=== PATIENT | male | born 1960 | race African-American/Black ===

== ENCOUNTER 2016-11-21 11:47 | Emergency (ER) | payer OTHER ==
[2016-11-21 13:11] LABS: Bilirubin Negative (Negative); Blood, Urine Large (Negative); Glucose, Urine (Dipstick) Negative (Negative); Ketone, Urine Negative (Negative); Nitrite Negative (Negative); Protein, Urine (Dipstick) 100 mg/dL (Neg-Trace)
[2016-11-21 13:13] LABS: Bacteria/HPF 4+ HPF (None Seen); Squamous Epithelial 0-3 HPF (0-3)
[2016-11-21 13:23] LABS: RBC/HPF 21-50 HPF (0-3)
[2016-11-21 13:24] LABS: Hyaline Casts/LPF 0-3 HYALINE CAST LPF (0-3 Hyaline); Yeast-All Forms None Seen HPF (None Seen)
== END 2016-11-21 12:59 | disposition home or self-care (01) ==
LOC: ERS 11:47
DX: T83.038A Leakage of other urinary catheter, initial encounter (principal); B20 Human immunodeficiency virus [HIV] disease; G82.20 Paraplegia, unspecified; G62.9 Polyneuropathy, unspecified; F32.9 Major depressive disorder, single episode, unspecified; Z87.891 Personal history of nicotine dependence; Z79.899 Other long term (current) drug therapy
CPT/HCPCS: 51102; 81003; 81015

== ENCOUNTER 2017-01-07 10:23 | Outpatient (CLI) | payer OTHER, SELFPAY ==
[2017-01-07] MEDS ORDERED: Sodium Chloride 0.9% 15 ML NEB ONE (17:46)
--- NOTE | 2017-01-08 11:10 | HP ---
DATE OF SERVICE: 01/07/2017 HISTORY OF PRESENT ILLNESS: Mr. Jorje Marlow is a very pleasant 57-year-old gentleman, who prese nts to the Wound Center for evaluation of multiple decubitus ulcerations. The patient has pressure u lcerations of the left hip, left ischium, and left iliac crest. In addition, the patient has pressur e ulcerations of the left lateral foot, left medial foot, and left ankle. The patient resides at [facility]. The patient's primary care physician is Dr. Sanchez. The patient's medical history is si gnificant for HIV seropositivity, for which the patient has been seen by Dr. Kevin Mckeon. The ana ent's medical history is also significant for myelopathy with chronic paraparesis. PAST MEDICAL HISTORY: 1. History of upper gastrointestinal bleeding. 2. Hepatitis C. 3. Human immunodeficiency virus seropositivity. 4. Neurogenic bladder. 5. Myelopathy with chronic paraparesis. 6. Anemia. 7. Qwdjjhpv-ma-bvmtbe protein-calorie malnutrition. 8. Bilateral knee contractures. PAST SURGICAL HISTORY: 1. Eye surgery. 2. Sinus surgery. 3. Excision of tumor of the upper chest. 4. Debridement of bilateral ischial decubitus ulcers, 05/14/2016. 5. Suprapubic tube placement, 06/01/2016. MEDICATIONS: 1. Iron. 2. MiraLax. 3. Truvada. 4. Flomax. 5. Isentress. 6. Ritonavir. 7. Potassium. 8. Melatonin. 9. Remeron. 10. Baclofen. 11. Folic acid. 12. Tramadol. ALLERGIES: CODEINE and PENICILLIN. SOCIAL HISTORY: The patient admits to tobacco use of 3 cigarettes per day. He denies any EtOH use. FAMILY HISTORY: Noncontributory. PHYSICAL EXAMINATION: VITAL SIGNS: Temperature 96.0, pulse 81, respirations 18, blood pressure 114/68. GENERAL: A 57-year-old gentleman, cachectic, lying on stretcher in examination room, in no acute dis tress. HEENT: Normocephalic, atraumatic. NECK: No nuchal rigidity. CHEST: Clear to auscultation. CARDIOVASCULAR: Regular rate and rhythm. ABDOMEN: Soft. EXTREMITIES: Pressure ulcerations are present over the left hip, left ischium, left iliac crest, lef t lateral foot, left medial foot, and left ankle. The left ischial pressure ulceration is associated with copious purulent drainage emanating from a potential space under the wound bed. Significant tu nneling is associated with the wound with bone palpable within the wound margins. Significant necrot ic tissue is associated with the decubitus ulceration of the left lateral foot. ASSESSMENT AND PLAN: 1. Multiple decubitus ulcerations as described above. I have discussed the treatment plan with Dr. Sanchez. The patient will be taken to the Emergency Department for admission today. I have also dis cussed the treatment plan with Dr. Valdes in the Emergency Department. Mr. Marlow also understan ds and is in agreement with the preceding treatment plan. 2. History of upper gastrointestinal bleeding. 3. Hepatitis C. 4. Human immunodeficiency virus seropositivity. 5. Neurogenic bladder. 6. Myelopathy with chronic paraparesis. 7. Anemia. 8. Tlfbnqlz-wc-viwgzp protein calorie malnutrition. 9. Bilateral knee contractures.
== END 2017-01-07 10:24 | disposition home or self-care (01) ==
LOC: WCC 10:23
PROVIDERS: ATTEND Family Medicine
DX: S91.302D Unspecified open wound, left foot, subsequent encounter (principal); S71.002D Unspecified open wound, left hip, subsequent encounter; S31.104D Unspecified open wound of abdominal wall, left lower quadrant without penetration into peritoneal cavity, subsequent encounter
CPT/HCPCS: 87070; 87205; 97602; 99204; A4218; G0463

== ENCOUNTER 2017-01-07 12:07 | Inpatient (IN) | payer OTHER, SELFPAY ==
[2017-01-07 12:57] LABS: #Eosinphils 0.1 thou/uL (0.0-0.7); #Lymphocytes 1.2 thou/uL (1.20-3.40); #Monocytes 0.6 thou/uL (0.11-0.59); #Neutrophils 7.3 thou/uL (1.40-6.50); %Basophils 0.1 % (0.0-1.0); %Eosinophils 0.7 % (0.0-10.0); %Lymphocytes 12.6 % (21.0-51.0); %Neutrophils 79.7 % (42.0-75.0); Mean Corpuscular HGB CONC 27.7 g/dL (32.0-36.0); Mean Corpuscular Hemoglobin 20.3 pg (27.0-31.0); Mean Corpuscular Volume 73.4 fl (80.0-94.0); Mean Platelet Volume 6.6 fL (7.4-10.4); Platelet Count 646 thou/uL (130-400); RBC Distribution Width 16.6 % (11.5-14.5); Red Blood Cell (RBC) Count 3.45 mill/uL (4.70-6.10); White Blood Cell (WBC) Count 9.2 thou/uL (4.8-10.8)
[2017-01-07 13:11] LABS: MDiff Complete? YES
[2017-01-07 13:12] LABS: Hypochromia MODERATE=16-30 cells (100X) (0-5/hpf); Microcytosis MODERATE=15-30 cells (100X) (0-5/hpf); PLT Morphology Comment Appears Increased; Polychromasia SLIGHT = 2-3 cells (100X) (0-2/hpf); Reflex for Review?? NO; Target Cells SLIGHT = 2-5 cells (100X) (0-1/hpf)
[2017-01-07 13:25] LABS: ALT (SGPT) 10 U/L (8-55); AST (SGOT) 23 U/L (5-34); Albumin 2.2 g/dL (3.5-5.0); Alkaline Phosphatase 101 U/L (40-150); Anion Gap 10 mmol/L (10-20); BUN (Urea Nitrogen) 12 mg/dL (8.4-25.7); Bilirubin, Total 0.3 mg/dL (0.2-1.2); Calc. Creatinine Clearance 0 mL/min (70-130); Calcium 8.3 mg/dL (7.8-10.44); Carbon Dioxide 27 mmol/L (22-29); Chloride 104 mmol/L (98-107); Estimated GFR-MDRD Greater than 90; Globulin 4.8 g/dL (2.4-3.5); Glucose 102 mg/dL (70-105); Potassium 3.8 mmol/L (3.5-5.1); Sodium 137 mmol/L (136-145)
[2017-01-07 13:28] LABS: CKMB 1.7 ng/mL (0-6.6); Troponin I Less than 0.010 ng/mL (< 0.028)
[2017-01-07] MEDS ORDERED: Sodium Chloride 0.9% 1,000 ML IV SCH (15:02)
[2017-01-07] MEDS ORDERED: Ondansetron ODT 4 MG TAB PO PRN (15:53)
[2017-01-07] MEDS ORDERED: cloNIDine 0.1 MG TAB PO PRN (15:53)
[2017-01-07] MEDS ORDERED: Ondansetron HCl/PF 4 MG/2 ML Vial IVP PRN (15:53)
[2017-01-07] MEDS ORDERED: Acetaminophen 500 MG TAB PO PRN (15:53)
[2017-01-07] MEDS ORDERED: hydrALAZINE 20 MG/ML VIAL SLOW IVP PRN (15:53)
--- NOTE | 2017-01-07 17:12 | HP ---
DATE OF ADMISSION: 01/07/2017 PRIMARY CARE PROVIDER: Chey Sanchez M.D. CHIEF COMPLAINT: Foot infection. HISTORY OF PRESENT ILLNESS: This is a 57-year-old -Romanian male with longstanding history of decubitus ulceration of the left ischium and left ankle region receiving local wound care at [facility]. The patient has been admitted and evaluated for decubitus ulceration s in these areas previously noted after review of the medical record dating back in early 2016. The patient states the left ankle wound has increased in size and complexity with malodorous discharge. The patient was being referred to the Wound Care [facility] at [facility] by Wayne Petersen after the staff at the facility noted worsening of these areas with jair pus draining from t he wounds. Patient admits to feeling generally rundown with chills and some recent nausea and diarrh ea. The patient denies any recent antibiotics exposure other than previously treated for suspected u rinary tract infection with chronic indwelling Thornton catheter. The patient was noted with wound cult ures as early as 12/10/2016 showing Pseudomonas aeruginosa, E. coli and Providencia stuartii. The pa malia was treated for this infection at that time, but states no current antibiotic therapy. The pat ient denies any specific increased shortness of breath, recent trauma, fall or new exposure history. Patient states there is some pain in the left foot, relieved with oral pain medication and otherwise movement of the extremity makes it worse. In the emergency room, patient underwent general evaluati on showing gangrenous changes of the left foot as well as draining decubitus ulcerations of the left ischium and iliac crest region, chronic in nature. The patient received IV vancomycin and was referr ed to the surgical floor for evaluation. PAST MEDICAL HISTORY: 1. Chronic indwelling Thornton catheter due to neurogenic bladder. 2. Severe peripheral neuropathy with nonambulatory status. 3. Moderate to severe protein calorie malnutrition. 4. Chronic decubitus ulcerations of the left ischium, sacrum and iliac crest, status post wound VAC. 5. Chronic normocytic anemia. 6. Human immunodeficiency viral infection with current treatment. 7. Hepatitis C with current treatment. 8. Chronic urinary tract infection secondary to chronic indwelling Thornton catheter. PAST SURGICAL HISTORY: 1. Status post sinus biopsy. 2. Status post local debridement with wound VAC application to chronic decubitus ulcers. 3. Status post tumor removal of his upper chest. CURRENT MEDICATIONS: Based on previous admission and early 2017; 1. Baclofen 10 mg p.o. t.i.d. 2. Truvada 200/300 mg 1 tablet p.o. daily. 3. Ferrous sulfate 325 mg p.o. b.i.d. 4. Folic acid 1 mg p.o. daily. 5. Isentress 400 mg p.o. b.i.d. 6. Flomax 0.4 mg p.o. daily. ALLERGIES: PENICILLIN and CODEINE. FAMILY HISTORY: Positive for diabetes and hypertension in his mother. SOCIAL HISTORY: Patient resides at [facility]. No current alcohol, tobac co or illicit drug use. Formerly used marijuana and tobacco products. REVIEW OF SYSTEMS: The following complete review of systems was negative, unless otherwise mentioned in the HPI or below: Constitutional: Weight loss or gain, ability to conduct usual activities. Skin: Rash, itching. Eyes: Double vision, pain. ENT/Mouth: Nose bleeding, neck stiffness, pain, tenderness. Cardiovascular: Palpitations, dyspnea on exertion, orthopnea. Respiratory: Shortness of breath, wheezing, cough, hemoptysis, fever or night sweats. Gastrointestinal: Poor appetite, abdominal pain, heartburn, nausea, vomiting, constipation, or diarr hea. Genitourinary: Urgency, frequency, dysuria, nocturia. Musculoskeletal: Pain, swelling. Neurologic/Psychiatric: Anxiety, depression. Allergy/Immunologic: Skin rash, bleeding tendency. Otherwise negative except as stated per HPI. PHYSICAL EXAMINATION: VITAL SIGNS: On admission, blood pressure 108/61, pulse 97, respiratory rate 18, temperature 98.4 de grees Fahrenheit, O2 saturation 98% on room air. GENERAL APPEARANCE: This is a 57-year-old -Romanian male, alert and oriented x3, pleasant, in no acute distress. HEENT: Pupils are equal, round, and reactive to light and accommodation. Extraocular muscles are in tact. No scleral icterus, no conjunctival injection. Nares patent. OP is clear. NECK: Supple, no cervical adenopathy, no thyromegaly, no carotid bruits, no JVD appreciated. Cervic al spine with full active and passive range of motion. CHEST: Lungs are clear to auscultation bilaterally. CARDIOVASCULAR: S1 and S2 without noted murmur. ABDOMEN: Rounded, soft, nontender, nondistended. Bowel sounds are positive in all four quadrants. There is no hepatosplenomegaly, no abdominal bruits, no rebound or guarding appreciated. EXTREMITIES: Contractures of bilateral hip flexors knees and ankle region. Severe generalized muscl e atrophy. Decubitus ulcerations of the left sacral, left ischium and left iliac crest region. Larg e area of gangrenous necrosis of the left ankle with exposed subcutaneous tissue, muscle fascia and t endons structures. NEUROLOGIC: Cranial nerves II-XII are grossly intact. The patient not observed ambulatory. No othe r gross focal deficits other than inability to extend lower extremities bilaterally. PERTINENT LABORATORY DATA AND X-RAY FINDINGS: Basic metabolic profile within normal limits. Lactic acid level 0.9. LFTs within normal limits. Albumin 2.2. CBC showed white blood cell count 9.2, hem oglobin 7, hematocrit 25.3, MCV 73.4, and platelet count is 646 with 80% neutrophilia. ASSESSMENT AND PLAN: 1. Gangrene of the left ankle. The patient will be admitted to the surgical appiah. We will consult General Surgery Service for evaluation and likely [id number] amputation. The patient with extens evangelina tissue destruction and gangrene with severe necrosis necessitating surgical intervention. We nikolai l continue vancomycin 1 g IV q.12 hours. Pain control with morphine sulfate 4 mg IV every 4 hours p. r.n. We will continue local wound care pending surgical evaluation. 2. Chronic decubitus ulcerations of the left ischium, sacrum and iliac crest. We will consult Wound Care services for evaluation and daily care. We will obtain surgical evaluation as outlined in #1. 3. Chronic microcytic anemia. Stable currently. We will continue to monitor hemoglobin trend. No current evidence of acute blood loss. Repeat CBC in a.m. 4. Human immunodeficiency virus with antiretroviral therapy. We will continue outpatient antiretrov iral therapy and monitor clinical response. 5. Hepatitis C with current therapy. We will continue supportive measures. LFTs within normal limi ts currently. 6. Severe peripheral neuropathy with nonambulatory status. Continue turning protocol. Local wound care as outlined previously. Continue Baclofen 10 mg p.o. t.i.d. 7. Moderate to severe protein calorie malnutrition. Ensure t.i.d. with meals. Consider dietitian neli onsult. 8. Prophylaxis. Sequential compression devices while in bed. Pepcid 20 mg p.o. b.i.d. 9. Code status is FULL. Surrogate medical decision maker is the patient's mother.
[2017-01-07] MEDS: Baclofen 10 MG TAB PO SCH (17:38)
[2017-01-07] MEDS: Ferrous Sulfate 325 MG TAB PO SCH (17:38)
[2017-01-07] MEDS: Sodium Chloride 0.9% 1,000 ML IV SCH (17:38)
[2017-01-07 17:48] VITALS: BMI 16.3
[2017-01-07] MEDS: Famotidine 20 MG TAB PO SCH (20:50)
[2017-01-07] MEDS: Raltegravir Potassium 400 MG TAB PO SCH (20:50)
[2017-01-08] MEDS: Vancomycin HCl 1 GM in Premix Bag 1 BAG IVPB SCH ×2 (01:58→13:44)
[2017-01-08] MEDS: Sodium Chloride 0.9% 1,000 ML IV SCH ×3 (02:01→21:54)
[2017-01-08 06:02] LABS: Band 2 % (5-11); Elliptocytes SLIGHT = 2-5 cells (100X) (0-1/hpf); Eosinophils 3 % (0-10); Hemoglobin 6.5 g/dL (14.0-18.0); Hypochromia SLIGHT = 6-15 cells (100X) (0-5/hpf); Lymphocytes 18 % (21-51); MDiff Complete? YES; Mean Corpuscular HGB CONC 28.1 g/dL (32.0-36.0); Mean Corpuscular Hemoglobin 20.5 pg (27.0-31.0); Mean Corpuscular Volume 73.1 fl (80.0-94.0); Mean Platelet Volume 6.7 fL (7.4-10.4); Microcytosis SLIGHT = 6-15 cells (100X) (0-5/hpf); Monocytes 13 % (0-10); Neutrophil 64 % (42-75); PLT Morphology Comment Appears Increased; Platelet Count 570 thou/uL (130-400); RBC Distribution Width 16.4 % (11.5-14.5); Red Blood Cell (RBC) Count 3.15 mill/uL (4.70-6.10); White Blood Cell (WBC) Count 6.2 thou/uL (4.8-10.8)
[2017-01-08 06:08] LABS: ALT (SGPT) Less than 7 U/L (8-55); AST (SGOT) 18 U/L (5-34); Alkaline Phosphatase 91 U/L (40-150); Anion Gap 7 mmol/L (10-20); BUN (Urea Nitrogen) 8 mg/dL (8.4-25.7); Bilirubin, Total 0.3 mg/dL (0.2-1.2); Calc. Creatinine Clearance 121 mL/min (70-130); Carbon Dioxide 26 mmol/L (22-29); Chloride 104 mmol/L (98-107); Estimated GFR-MDRD Greater than 90; Globulin 4.1 g/dL (2.4-3.5); Glucose 75 mg/dL (70-105); Potassium 3.7 mmol/L (3.5-5.1); Protein, Total 6.1 g/dL (6.0-8.3); Sodium 133 mmol/L (136-145)
[2017-01-08] MEDS: Raltegravir Potassium 400 MG TAB PO SCH ×2 (09:46→20:44)
[2017-01-08] MEDS: Emtricitabine/Tenofovir 200-300 MG TAB PO SCH (09:46)
[2017-01-08] MEDS: Baclofen 10 MG TAB PO SCH ×3 (09:46→18:07)
[2017-01-08] MEDS: Tamsulosin HCl 0.4 MG CAP PO SCH (11:41)
[2017-01-08] MEDS: Famotidine 20 MG TAB PO SCH ×2 (11:41→20:44)
[2017-01-08] MEDS: Polyethylene Glycol 3350 17 GM Packet PO SCH (11:41)
[2017-01-08] MEDS: Ferrous Sulfate 325 MG TAB PO SCH ×2 (11:41→18:07)
[2017-01-08] MEDS: Folic Acid 1 MG TAB PO SCH (11:41)
--- NOTE | 2017-01-08 13:00 | CON ---
DATE OF CONSULTATION: 01/08/2017 REASON FOR CONSULTATION: Gangrenous wound of left foot. HISTORY OF PRESENT ILLNESS: Mr. Marlow is a 57-year-old -[place] male with rapidly progressive neuropathy and contractures of the lower extremity. He has a history of HIV and became depressed and quit taking his HIV medication and ended up in a custodial, nonambulatory with contractures of the lower extremity and generalized weakness. I saw him back in May and June of this year and debrided multiple ischial decubitus as well as decubitus ulcers of his left foot. At that time, the wounds were into the subcutaneous tissues, but not down to bone. He was sent to a custodial facility for ongoing wound care. He still spends most of his day up in a wheelchair kind of propped to the side since his hips are contracted greater than 90 degrees. He states that his right foot has healed up fine, but his left foot has gotten much worse and his doctors have told him that his only option is amputation. He denies any fevers or chills, but has had increased swelling and odor from the left foot. He is completely nonambulatory and no longer transfers. PAST MEDICAL HISTORY: HIV, now back on his medications for about 9 months; severe peripheral neuropathy of unknown etiology; nonambulatory with multiple contractures; severe protein-calorie malnutrition with recent worsening due to an episode of nausea and diarrhea, which has since resolved; chronic decubitus ulcers of the ischium and sacrum; chronic decubitus ulcers of the left foot and right heel; hepatitis C, currently undergoing treatment; chronic UTI with a suprapubic catheter placed due to erosion of the penis from a Thornton catheter. PAST SURGICAL HISTORY: Sinus surgery, debridement of multiple decubitus ulcers with wound VAC applications, suprapubic catheter placement, and tumor removal from his upper chest. OUTPATIENT MEDICATIONS: Include melatonin/paroxetine, Santyl, baclofen, Truvada , iron, folate, MiraLax, Isentress and Flomax. INPATIENT MEDICATIONS: Baclofen, Truvada, Pepcid, iron, folate, MiraLax, Isentress, Flomax, vancomycin, and multiple p.r.n.s. ALLERGIES: He reports allergies to PENICILLIN and CODEINE. FAMILY HISTORY: Diabetes and high blood pressure. SOCIAL HISTORY: He is a former smoker, but no longer smokes. He used to use marijuana, but no longer uses that either. He does not drink. He is at a custodial facility and requires total assist for transfers. REVIEW OF SYSTEMS: Ten-system review of systems is negative except per HPI. PHYSICAL EXAMINATION: VITAL SIGNS: The patient has been afebrile since his admission, heart rate 79, respirations 14, 97% saturated on room air, blood pressure 99/58. GENERAL: Reveals a cachectic, chronically ill-appearing man, in no acute distress. He is not flushed or toxic in appearance. He is not jaundiced or icteric. HEENT: Unremarkable. NECK: Supple, without lymphadenopathy or thyroid nodules. HEART: Regular rate and rhythm without murmurs, rubs, or gallops. LUNGS: Clear to auscultation bilaterally. ABDOMEN: Soft and nontender. He has a suprapubic catheter in place. EXTREMITIES: He has severe contractures of bilateral lower extremities. His hips do not extend even to 90 degrees nor do his knees. His right heel decubitus ulcer has completely healed and he has no active decubitus ulcers on the right foot. The left foot has full thickness, but clean and granulating ulcerations on the medial surface, but the lateral surface has frankly gangrenous tissues with exposed tendon and bone and a foul odor. His entire left foot is warm and boggy, and there is swelling up to the level of the ankle as well as some erythema, but no lymphangitic streaking. He has a left ischial decubitus ulcer as well as sacral decubitus ulcers. There is some necrotic tissue in the sacral ulcer, but the other ulcers appear fairly clean and granulating. LABORATORY DATA: White count is normal at 6.2, hematocrit is low at 23, platelets 570. Electrolytes are unremarkable. LFTs are unremarkable except for a low albumin at 2, troponins were negative on admission. His absolute CD4 count on 01/02/2017 was 123, which is low, but his HIV RNA counts have come down between March and June of this year. I do not see any more recent than that. There is no imaging during this admission. ASSESSMENT AND PLAN: Gangrenous left foot due to progressive decubitus ulcer. I agree with his primary care doctor that amputation is indicated. He is nonambulatory with contractions, and whether we do a yoght-hgav-zhdagybols or dgnib-uox-jmlr amputation, the incision is at some risk of breakdown, since the patient spends most of the time lying on that side. Due to his active infection , I have recommended a guillotine amputation at the ankle to allow him to clear his infection prior to proceeding with a BKA or AKA, which the patient has yet to decide. I also plan to debride some of the necrotic tissue from the sacral decubitus ulcer while he is under anesthesia. He was eating breakfast when I saw him this morning, but has been n.p.o. since 8:30. So, we will plan his operation for 4:30 this afternoon. The procedure and its inherent risks were discussed with the patient. He understands and accepts these risks and wishes to proceed. All of his questions were answered. MRAK
[2017-01-08] MEDS ORDERED: PHENYLEPHRINE-NS 100 MCG/ML 10 ML SYRINGE ONE (14:36)
[2017-01-08] MEDS ORDERED: Ondansetron HCl/PF 4 MG/2 ML Vial ONE (14:36)
[2017-01-08] MEDS ORDERED: ePHEDrine/0.9% NaCl/PF SYRINGE 50 mg/10 ml ONE (14:36)
[2017-01-08] MEDS ORDERED: Glycopyrrolate 0.2 MG/ML 5 ML SYRINGE ONE (14:36)
[2017-01-08] MEDS ORDERED: Lidocaine 1% PF 5 ML VIAL ONE (14:36)
[2017-01-08] MEDS ORDERED: PROPOFOL 200 MG/20 ML VIAL ONE (14:36)
[2017-01-08] MEDS ORDERED: Fentanyl 250 MCG/5 ML VIAL ONE (16:25)
--- NOTE | 2017-01-08 17:39 | PDOC.PN ---
- Subjective Encounter Start Date: 01/08/17 Encounter Start Time: 13:00 Subjective: f/u for gangrene of L foot/ankle with chronic decubitus ulcerations of -: L ischium, sacrum and iliac crest. Plan for amputation of L foot above the -: ankle today. Receiving Vancomycin. - Objective Resuscitation Status: Resuscitation Status FULL:Full Resuscitation MAR Reviewed: Yes Vital Signs & Weight: Vital Signs (12 hours) Temp Pulse Resp BP Pulse Ox 01/08/17 11:25 97.9 F 79 14 99/58 L 97 01/08/17 08:58 98.3 F 78 20 97 01/08/17 07:20 98.3 F 78 20 116/69 97 Weight Admit Weight 117 lb Weight 117 lb I&O: 01/07/17 01/08/17 01/09/17 06:59 06:59 06:59 Intake Total 1950 Output Total 1700 Balance 250 Result Diagrams: 01/08/17 04:44 01/08/17 04:44 Additional Labs: Microbiology 01/07/17 12:49 Venous blood - Right Hand Blood Culture - Preliminary Specimen has been received and culture in progress. No Growth to date. 01/07/17 12:49 Venous blood - Left Hand Blood Culture - Preliminary Specimen has been received and culture in progress. No Growth to date. Laboratory Tests 01/07/17 12:32 Hgb 7.0 L Plt Count 646 H Phys Exam - Physical Examination Constitutional: NAD HEENT: PERRLA, oral pharynx no lesions Neck: no JVD Respiratory: no wheezing, clear to auscultation bilateral Cardiovascular: RRR Gastrointestinal: soft, non-tender, no distention, positive bowel sounds bilateral chronic LE contractures, L foot edema Musculoskeletal: pulses present Moves UE's without difficulty Neurological: normal sensation Psychiatric: A&O x 3 Deviation from normal: L foot with extensive gangrene and necrosis Skin: normal turgor, cap refill <2 seconds Dx/Plan (1) Gangrene of left foot Code(s): I96 - GANGRENE, NOT ELSEWHERE CLASSIFIED Status: Acute Comment: Plan for BKA today, continue pain control and IV Vancomycin (2) Neurogenic bladder Code(s): N31.9 - NEUROMUSCULAR DYSFUNCTION OF BLADDER, UNSPECIFIED Status: Chronic Comment: Chronic indwelling Thornton catheter (3) Anemia, chronic disease Code(s): D63.8 - ANEMIA IN OTHER CHRONIC DISEASES CLASSIFIED ELSEWHERE Status : Chronic Comment: Serial monitoring, may need PRBC's during surgery (4) Bilateral knee contractures Code(s): M24.561 - CONTRACTURE, RIGHT KNEE; M24.562 - CONTRACTURE, LEFT KNEE Status: Chronic Comment: Severe contractures of LE's, PT/OT for evaluation (5) Decubitus ulcers Code(s): L89.90 - PRESSURE ULCER OF UNSPECIFIED SITE, UNSPECIFIED STAGE Status : Chronic Qualifiers: Pressure ulcer stage: unstageable Comment: Plan for repeat debridement today, local wound care, IV Vancomycin (6) HIV (human immunodeficiency virus infection) Status: Chronic Comment: Continue anti-retroviral therapy (7) Protein-calorie malnutrition, moderate Code(s): E44.0 - MODERATE PROTEIN-CALORIE MALNUTRITION Status: Chronic Comment: Ensure Enlive TID - Plan continue antibiotics, PT/OT, clinical social work aide Continue supportive measures -: Plan for amputation of L foot today -: WCT with local care -: Pain control with Morphine Sulfate -: Continue IVF NS 100ml/h * AM lab: BMP, CBC * Appreciate Surgery assistance
[2017-01-08] MEDS ORDERED: Promethazine HCl 25 MG/ML VIAL SLOW IVP PRN (18:21)
[2017-01-08] MEDS ORDERED: Ondansetron HCl/PF 4 MG/2 ML Vial IVP PRN (18:21)
[2017-01-08] MEDS ORDERED: Promethazine HCl 25 MG/ML VIAL IM PRN (18:21)
[2017-01-08] MEDS ORDERED: Promethazine HCl 25 MG/ML VIAL ONE (18:41)
[2017-01-08] MEDS ORDERED: Bupivacaine/Epinephrine 0.25% 30 ML VIAL ONE (18:42)
[2017-01-09 01:22] LABS: Vancomycin, Trough 9.8 ug/mL
[2017-01-09] MEDS ORDERED: Vancomycin HCl 1 GM in Premix Bag 1 BAG IVPB SCH (03:00)
[2017-01-09] MEDS: Vancomycin HCl 1 GM in Premix Bag 1 BAG IVPB SCH ×3 (03:04→17:57)
[2017-01-09 07:17] LABS: ALT (SGPT) 8 U/L (8-55); AST (SGOT) 22 U/L (5-34); Alkaline Phosphatase 89 U/L (40-150); Anion Gap 8 mmol/L (10-20); BUN (Urea Nitrogen) 6 mg/dL (8.4-25.7); Bilirubin, Total 0.2 mg/dL (0.2-1.2); Calc. Creatinine Clearance 115 mL/min (70-130); Calcium 8.1 mg/dL (7.8-10.44); Carbon Dioxide 27 mmol/L (22-29); Chloride 105 mmol/L (98-107); Estimated GFR-MDRD Greater than 90; Globulin 4.3 g/dL (2.4-3.5); Glucose 95 mg/dL (70-105); Potassium 3.7 mmol/L (3.5-5.1); Protein, Total 6.3 g/dL (6.0-8.3); Sodium 136 mmol/L (136-145)
[2017-01-09 07:50] LABS: #Eosinphils 0.1 thou/uL (0.0-0.7); #Lymphocytes 1.1 thou/uL (1.20-3.40); #Monocytes 0.4 thou/uL (0.11-0.59); #Neutrophils 2.9 thou/uL (1.40-6.50); %Basophils 0.2 % (0.0-1.0); %Eosinophils 3.1 % (0.0-10.0); %Lymphocytes 23.5 % (21.0-51.0); %Monocytes 9.6 % (0.0-10.0); %Neutrophils 63.6 % (42.0-75.0); Anisocytosis SLIGHT = 6-15 cells (100X) (0-5/hpf); Hemoglobin 6.7 g/dL (14.0-18.0); Hypochromia MODERATE=16-30 cells (100X) (0-5/hpf); MDiff Complete? YES; Mean Corpuscular HGB CONC 27.7 g/dL (32.0-36.0); Mean Corpuscular Hemoglobin 20.4 pg (27.0-31.0); Mean Corpuscular Volume 73.6 fl (80.0-94.0); Mean Platelet Volume 6.3 fL (7.4-10.4); Ovalocytes SLIGHT = 2-5 cells (100X) (0-1/hpf); Platelet Count 575 thou/uL (130-400); Poikilocytosis SLIGHT = 6-15 cells (100X) (0-5/hpf); RBC Distribution Width 16.1 % (11.5-14.5); Red Blood Cell (RBC) Count 3.26 mill/uL (4.70-6.10); Target Cells SLIGHT = 2-5 cells (100X) (0-1/hpf); White Blood Cell (WBC) Count 4.6 thou/uL (4.8-10.8)
[2017-01-09] MEDS: Polyethylene Glycol 3350 17 GM Packet PO SCH (08:38)
[2017-01-09] MEDS: Emtricitabine/Tenofovir 200-300 MG TAB PO SCH (08:39)
[2017-01-09] MEDS: Sodium Chloride 0.9% 1,000 ML IV SCH ×2 (08:39→17:58)
[2017-01-09] MEDS: Ferrous Sulfate 325 MG TAB PO SCH ×2 (08:39→17:57)
[2017-01-09] MEDS: Baclofen 10 MG TAB PO SCH ×3 (08:39→17:57)
[2017-01-09] MEDS: Famotidine 20 MG TAB PO SCH ×2 (08:39→21:09)
[2017-01-09] MEDS: Tamsulosin HCl 0.4 MG CAP PO SCH (08:40)
[2017-01-09] MEDS: Raltegravir Potassium 400 MG TAB PO SCH ×2 (08:40→21:08)
[2017-01-09] MEDS: Folic Acid 1 MG TAB PO SCH (08:40)
[2017-01-09] MEDS ORDERED: Morphine 2 mg/2ml in 0.9% NaCl PF SYRINGE IV PRN (09:47)
[2017-01-09] MEDS ORDERED: traMADol HCl 50 MG TAB PO PRN (09:50)
[2017-01-09] MEDS ORDERED: HYDROcodone/Acetaminophen 5/325 mg Tablet PO PRN ×2 (09:50)
[2017-01-09] MEDS: Morphine 4 MG/ML VIAL SLOW IVP PRN (11:07)
--- NOTE | 2017-01-09 15:06 | PDOC.PN ---
- Subjective Encounter Start Date: 01/09/17 Encounter Start Time: 14:55 Subjective: f/u s/p amputation of L foot secondary to severe gangrene and necrosis. -: POD #1 and pain controlled. Sleeping more today. Appetite ok. No fever. - Objective Resuscitation Status: Resuscitation Status FULL:Full Resuscitation MAR Reviewed: Yes Vital Signs & Weight: Vital Signs (12 hours) Temp Pulse Resp BP Pulse Ox 01/09/17 11:15 98.1 F 79 24 H 122/63 99 01/09/17 08:36 98.3 F 70 24 H 130/70 100 01/09/17 08:00 98.3 F 70 24 H 100 01/09/17 04:00 98.1 F 68 16 128/79 98 Weight Admit Weight 117 lb Weight 117 lb I&O: 01/08/17 01/09/17 01/10/17 06:59 06:59 06:59 Intake Total 1950 1440 Output Total 1700 2350 Balance 250 -910 Result Diagrams: 01/09/17 06:46 01/09/17 06:46 Additional Labs: Microbiology 01/07/17 12:49 Venous blood - Right Hand Blood Culture - Preliminary Specimen has been received and culture in progress. No Growth to date. 01/07/17 12:49 Venous blood - Right Hand Blood Culture - Preliminary NO GROWTH AT 48 HOURS 01/07/17 12:49 Venous blood - Left Hand Blood Culture - Preliminary Specimen has been received and culture in progress. No Growth to date. 01/07/17 12:49 Venous blood - Left Hand Blood Culture - Preliminary NO GROWTH AT 48 HOURS Laboratory Tests 01/07/17 01/08/17 01/09/17 12:32 04:44 00:54 Hgb 7.0 L 6.5 L Plt Count 646 H 570 H Vancomycin Trough 9.8 Phys Exam - Physical Examination Constitutional: NAD HEENT: PERRLA, oral pharynx no lesions Neck: no JVD, supple Respiratory: no wheezing, clear to auscultation bilateral Cardiovascular: RRR Gastrointestinal: soft, non-tender, no distention, positive bowel sounds BLE contractures, LLE with post-surgical changes and surgical dressing in place, wound vac in place Musculoskeletal: pulses present, edema present Psychiatric: A&O x 3 Skin: normal turgor, cap refill <2 seconds Dx/Plan (1) Gangrene of left foot Code(s): I96 - GANGRENE, NOT ELSEWHERE CLASSIFIED Status: Acute Comment: s/ p L foot amputation POD #1, continue pain control and IV Vancomycin (2) Neurogenic bladder Code(s): N31.9 - NEUROMUSCULAR DYSFUNCTION OF BLADDER, UNSPECIFIED Status: Chronic Comment: Chronic indwelling Thornton catheter (3) Anemia, chronic disease Code(s): D63.8 - ANEMIA IN OTHER CHRONIC DISEASES CLASSIFIED ELSEWHERE Status : Chronic Comment: Serial monitoring, transfuse 1u PRBC's today, CBC in am (4) Bilateral knee contractures Code(s): M24.561 - CONTRACTURE, RIGHT KNEE; M24.562 - CONTRACTURE, LEFT KNEE Status: Chronic Comment: Severe contractures of LE's, PT/OT for evaluation (5) Decubitus ulcers Code(s): L89.90 - PRESSURE ULCER OF UNSPECIFIED SITE, UNSPECIFIED STAGE Status : Chronic Qualifiers: Pressure ulcer stage: unstageable Comment: s/p debridement 01/08/17, local wound care, IV Vancomycin (6) HIV (human immunodeficiency virus infection) Status: Chronic Comment: Continue anti-retroviral therapy (7) Protein-calorie malnutrition, moderate Code(s): E44.0 - MODERATE PROTEIN-CALORIE MALNUTRITION Status: Chronic Comment: Ensure Enlive TID - Plan continue antibiotics, PT/OT, social work job titles Stable overall -: Continue Vancomycin 1gm IV q12h -: Local WCT with wound vac -: Transfuse 1u PRBC's -: AM lab: BMP, CBC * .
--- NOTE | 2017-01-10 01:07 | PRG ---
Mr. Marlow is feeling fine. He denies pain at his operative sites. Wound care placed VAC dressings to his sacral decubitus ulcer and wet to dry dressings to his ankle guillotine wound which is clean. Erythema and swelling on his leg looks to be improved. LABORATORY DATA: White count is normal. Hematocrit is still low at 24, but stable. Electrolytes are unremarkable. Albumin is low at 2, consistent with his severe cachexia. ASSESSMENT: Severe gangrene of the left foot due to pressure necrosis, status post ankle guillotine to control the infection. The wound is clean and we will plan on formal amputation at a higher level tomorrow. I have briefly discussed the options of below knee versus above knee. The patient is nonambulatory and bedbound. He spends most of his time lying on his left side. So for this reason allowing a below knee amputation may be preferable since most of the incision will be anterior. He has normal circulation so should heel a below knee amputation or an above the knee amputation and he will prefer below the knee amputation, so we will proceed with that tomorrow. If he has wound healing problems that may require amputation at a higher level. MARK
[2017-01-10 01:36] LABS: Vancomycin, Trough 19.5 ug/mL
[2017-01-10] MEDS: Sodium Chloride 0.9% 1,000 ML IV SCH ×3 (02:21→22:19)
[2017-01-10] MEDS: Vancomycin HCl 1 GM in Premix Bag 1 BAG IVPB SCH ×4 (02:30→17:13)
[2017-01-10 05:37] LABS: Anion Gap 10 mmol/L (10-20); BUN (Urea Nitrogen) 8 mg/dL (8.4-25.7); Calc. Creatinine Clearance 117 mL/min (70-130); Carbon Dioxide 24 mmol/L (22-29); Chloride 104 mmol/L (98-107); Estimated GFR-MDRD Greater than 90; Glucose 107 mg/dL (70-105); Potassium 4.3 mmol/L (3.5-5.1); Sodium 134 mmol/L (136-145)
[2017-01-10 06:18] LABS: Eosinophils 2 % (0-10); Hypochromia SLIGHT = 6-15 cells (100X) (0-5/hpf); Lymphocytes 20 % (21-51); MDiff Complete? YES; Mean Corpuscular HGB CONC 28.9 g/dL (32.0-36.0); Mean Corpuscular Volume 76.3 fl (80.0-94.0); Mean Platelet Volume 6.7 fL (7.4-10.4); Monocytes 3 % (0-10); Neutrophil 75 % (42-75); PLT Morphology Comment Appears Adequate; Platelet Count 577 thou/uL (130-400); RBC Distribution Width 17.4 % (11.5-14.5); Red Blood Cell (RBC) Count 3.62 mill/uL (4.70-6.10); White Blood Cell (WBC) Count 8.2 thou/uL (4.8-10.8)
[2017-01-10] MEDS ORDERED: Levofloxacin 500 mg/D5W 100 ml Premix Bag ONE (07:23)
[2017-01-10] MEDS ORDERED: Fentanyl 100 MCG/2 ML VIAL ONE (07:39)
--- NOTE | 2017-01-10 09:08 | PDOC.PN ---
- Subjective Encounter Start Date: 01/10/17 Encounter Start Time: 06:30 -: old records requested/rev Pt seen and examined, chart reviewed in its entirety. No acute event sovernigh,t pain controlled, no F/c, no N/V/d/C. To OR now for presumed BKA. POD2 from [facility] amp for gangrene from infected pressure ulcer. BCx remain negative, afebrile, no acute event snoted 10 point rOS performed and neg for all systems except as per HPI above - Objective Resuscitation Status: Resuscitation Status FULL:Full Resuscitation MAR Reviewed: Yes Vital Signs & Weight: Vital Signs (12 hours) Temp Pulse Pulse Resp BP BP Pulse Ox 01/10/17 04:00 98.6 F 78 16 109/61 98 01/09/17 23:19 98.4 F 80 16 124/68 96 01/09/17 23:12 98.4 F 74 16 128/74 95 Weight Admit Weight 117 lb Weight 117 lb I&O: 01/09/17 01/10/17 01/11/17 06:59 06:59 06:59 Intake Total 1440 2630 Output Total 2350 1400 Balance -910 1230 Result Diagrams: 01/10/17 04:59 01/10/17 04:59 Radiology Reviewed by me: Yes EKG Reviewed by me: Yes Phys Exam - Physical Examination Constitutional: NAD HEENT: PERRLA, moist MMs, sclera anicteric, oral pharynx no lesions Neck: no nodes, no JVD, supple, full ROM Respiratory: no wheezing, no rales, no rhonchi, clear to auscultation bilateral Cardiovascular: RRR, no significant murmur, no rub Gastrointestinal: soft, non-tender, no distention, positive bowel sounds Musculoskeletal: edema present right leg pulses 1+ in DP and PT. Amp site to L leg c/d/I Neurological: non-focal, normal sensation, moves all 4 limbs Lymphatic: no nodes Psychiatric: normal affect, A&O x 3 Skin: no rash, normal turgor, cap refill <2 seconds Dx/Plan (1) HTN (hypertension) Code(s): I10 - ESSENTIAL (PRIMARY) HYPERTENSION Status: Chronic Qualifiers: Hypertension type: essential hypertension Qualified Code(s): I10 - Essential (primary) hypertension (2) HLD (hyperlipidemia) Code(s): E78.5 - HYPERLIPIDEMIA, UNSPECIFIED Status: Chronic Qualifiers: Hyperlipidemia type: unspecified Qualified Code(s): E78.5 - Hyperlipidemia , unspecified (3) Gangrene of left foot Code(s): I96 - GANGRENE, NOT ELSEWHERE CLASSIFIED Status: Acute Comment: s/ p L foot amputation POD #2, continue pain control and IV Vancomycin. For Left leg BKA (presumed) this morning, followup on surgery notes and results. Abx for a few more days post BKA (4) Bilateral knee contractures Code(s): M24.561 - CONTRACTURE, RIGHT KNEE; M24.562 - CONTRACTURE, LEFT KNEE Status: Chronic Comment: Severe contractures of LE's, PT/OT for evaluation (5) Decubitus ulcers Code(s): L89.90 - PRESSURE ULCER OF UNSPECIFIED SITE, UNSPECIFIED STAGE Status : Chronic Qualifiers: Pressure ulcer stage: unstageable Laterality: left Comment: s/p debridement 01/08/17, local wound care, IV Vancomycin (6) HIV (human immunodeficiency virus infection) Status: Chronic Comment: Continue anti-retroviral therapy (7) Neurogenic bladder Code(s): N31.9 - NEUROMUSCULAR DYSFUNCTION OF BLADDER, UNSPECIFIED Status: Chronic Comment: Chronic indwelling Thornton catheter (8) Protein-calorie malnutrition, moderate Code(s): E44.0 - MODERATE PROTEIN-CALORIE MALNUTRITION Status: Chronic Comment: Ensure Enlive TID - Plan cont current plan of care, continue antibiotics, PT/OT, 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
[2017-01-10] MEDS: Baclofen 10 MG TAB PO SCH ×3 (09:40→17:13)
[2017-01-10] MEDS: Famotidine 20 MG TAB PO SCH ×3 (09:41→22:18)
[2017-01-10] MEDS: Polyethylene Glycol 3350 17 GM Packet PO SCH ×2 (09:41→11:51)
[2017-01-10] MEDS: Raltegravir Potassium 400 MG TAB PO SCH ×3 (09:41→22:18)
[2017-01-10] MEDS: Folic Acid 1 MG TAB PO SCH ×2 (09:41→11:52)
[2017-01-10] MEDS: Ferrous Sulfate 325 MG TAB PO SCH ×3 (09:41→17:13)
[2017-01-10] MEDS: Emtricitabine/Tenofovir 200-300 MG TAB PO SCH ×2 (09:41→11:52)
[2017-01-10] MEDS: Tamsulosin HCl 0.4 MG CAP PO SCH ×2 (09:42→11:52)
[2017-01-10] MEDS ORDERED: Ondansetron HCl/PF 4 MG/2 ML Vial IVP PRN (10:20)
[2017-01-10] MEDS ORDERED: Promethazine HCl 25 MG/ML VIAL IM PRN (10:20)
[2017-01-10] MEDS ORDERED: Promethazine HCl 25 MG/ML VIAL SLOW IVP PRN (10:20)
[2017-01-10] MEDS ORDERED: VANCOMYCIN IVPB PRN (14:07)
[2017-01-10] MEDS ORDERED: PROPOFOL 200 MG/20 ML VIAL ONE (16:54)
[2017-01-10] MEDS ORDERED: Dexamethasone 20 MG/5 ML VIAL ONE (16:54)
[2017-01-10] MEDS ORDERED: Ondansetron HCl/PF 4 MG/2 ML Vial ONE (16:54)
[2017-01-10] MEDS ORDERED: PHENYLEPHRINE-NS 100 MCG/ML 10 ML SYRINGE ONE (16:54)
[2017-01-11 01:22] LABS: Vancomycin, Trough 20.4 ug/mL
[2017-01-11] MEDS: Vancomycin HCl 1 GM in Premix Bag 1 BAG IVPB SCH ×3 (02:40→19:52)
[2017-01-11 05:59] LABS: #Lymphocytes 1.2 thou/uL (1.20-3.40); #Monocytes 0.8 thou/uL (0.11-0.59); %Basophils 0.1 % (0.0-1.0); %Eosinophils 0.3 % (0.0-10.0); %Lymphocytes 10.7 % (21.0-51.0); %Monocytes 7.5 % (0.0-10.0); %Neutrophils 81.5 % (42.0-75.0); Hemoglobin 7.1 g/dL (14.0-18.0); Mean Corpuscular HGB CONC 27.4 g/dL (32.0-36.0); Mean Corpuscular Hemoglobin 21.4 pg (27.0-31.0); Mean Corpuscular Volume 77.9 fl (80.0-94.0); Platelet Count 437 thou/uL (130-400); RBC Distribution Width 17.6 % (11.5-14.5); Red Blood Cell (RBC) Count 3.34 mill/uL (4.70-6.10)
[2017-01-11 06:16] LABS: ALT (SGPT) 7 U/L (8-55); AST (SGOT) 22 U/L (5-34); Alkaline Phosphatase 111 U/L (40-150); Anion Gap 8 mmol/L (10-20); BUN (Urea Nitrogen) 11 mg/dL (8.4-25.7); Bilirubin, Total Less than 0.2 mg/dL (0.2-1.2); Calc. Creatinine Clearance 111 mL/min (70-130); Calcium 8.4 mg/dL (7.8-10.44); Carbon Dioxide 26 mmol/L (22-29); Chloride 109 mmol/L (98-107); Estimated GFR-MDRD Greater than 90; Globulin 4.2 g/dL (2.4-3.5); Glucose 125 mg/dL (70-105); Potassium 4.1 mmol/L (3.5-5.1); Protein, Total 6.2 g/dL (6.0-8.3); Sodium 139 mmol/L (136-145)
[2017-01-11] MEDS: Folic Acid 1 MG TAB PO SCH (08:57)
[2017-01-11] MEDS: Tamsulosin HCl 0.4 MG CAP PO SCH (08:57)
[2017-01-11] MEDS: Famotidine 20 MG TAB PO SCH ×2 (08:58→21:24)
[2017-01-11] MEDS: Polyethylene Glycol 3350 17 GM Packet PO SCH (08:58)
[2017-01-11] MEDS: Ferrous Sulfate 325 MG TAB PO SCH ×2 (08:58→17:48)
[2017-01-11] MEDS: Emtricitabine/Tenofovir 200-300 MG TAB PO SCH (08:58)
[2017-01-11] MEDS: Raltegravir Potassium 400 MG TAB PO SCH ×2 (08:58→21:24)
[2017-01-11] MEDS: Baclofen 10 MG TAB PO SCH ×3 (08:58→17:48)
--- NOTE | 2017-01-11 13:36 | PDOC.PN ---
- Subjective Encounter Start Date: 01/11/17 Encounter Start Time: 10:00 Subjective: feels better, no sob - Objective Resuscitation Status: Resuscitation Status FULL:Full Resuscitation MAR Reviewed: Yes Vital Signs & Weight: Vital Signs (12 hours) Temp Pulse Resp BP Pulse Ox 01/11/17 12:50 97.9 F 85 24 H 105/61 97 01/11/17 08:05 97.7 F 73 20 122/62 96 01/11/17 03:54 97.7 F 62 18 121/66 97 Weight Admit Weight 117 lb Weight 117 lb I&O: 01/10/17 01/11/17 01/12/17 06:59 06:59 06:59 Intake Total 2630 3235 Output Total 1400 3300 Balance 1230 -65 Result Diagrams: 01/11/17 05:41 01/11/17 05:41 Additional Labs: Accuchecks 01/10/17 19:20 POC Glucose 238 H Phys Exam - Physical Examination HEENT: PERRLA, sclera anicteric Neck: no JVD, supple Respiratory: no wheezing, no rales Cardiovascular: RRR, no significant murmur Gastrointestinal: soft, no distention, positive bowel sounds left bka, has wound vac over lat hip area Neurological: non-focal Psychiatric: normal affect, A&O x 3 Dx/Plan (1) Status post below knee amputation of left lower extremity Code(s): Z89.512 - ACQUIRED ABSENCE OF LEFT LEG BELOW KNEE Status: Acute Comment: on 01/08/2017 (2) Gangrene of left foot Code(s): I96 - GANGRENE, NOT ELSEWHERE CLASSIFIED Status: Acute (3) HLD (hyperlipidemia) Code(s): E78.5 - HYPERLIPIDEMIA, UNSPECIFIED Status: Chronic Qualifiers: Hyperlipidemia type: unspecified Qualified Code(s): E78.5 - Hyperlipidemia , unspecified (4) HTN (hypertension) Code(s): I10 - ESSENTIAL (PRIMARY) HYPERTENSION Status: Chronic Qualifiers: Hypertension type: essential hypertension Qualified Code(s): I10 - Essential (primary) hypertension (5) Anemia, chronic disease Code(s): D63.8 - ANEMIA IN OTHER CHRONIC DISEASES CLASSIFIED ELSEWHERE Status : Chronic Comment: Serial monitoring, transfuse 1u PRBC's today, CBC in am (6) Bilateral knee contractures Code(s): M24.561 - CONTRACTURE, RIGHT KNEE; M24.562 - CONTRACTURE, LEFT KNEE Status: Chronic Comment: Severe contractures of LE's, PT/OT for evaluation (7) Decubitus ulcers Code(s): L89.90 - PRESSURE ULCER OF UNSPECIFIED SITE, UNSPECIFIED STAGE Status : Chronic Qualifiers: Pressure ulcer stage: unstageable Laterality: left Comment: s/p debridement 01/08/17, local wound care (8) HIV (human immunodeficiency virus infection) Status: Chronic Comment: Continue anti-retroviral therapy (9) Neurogenic bladder Code(s): N31.9 - NEUROMUSCULAR DYSFUNCTION OF BLADDER, UNSPECIFIED Status: Chronic Comment: Chronic indwelling Thornton catheter (10) Paraparesis Code(s): G82.20 - PARAPLEGIA, UNSPECIFIED Status: Chronic (11) Protein-calorie malnutrition, moderate Code(s): E44.0 - MODERATE PROTEIN-CALORIE MALNUTRITION Status: Chronic Comment: Ensure Enlive TID - Plan transfuse 1 unit with Hb of 7g, has had 1 unit before for Hb of 6g -: is on vanc -: oral iron, isentress and truvada -: alb is 2.0, morphine and norco prn along with baclofen tid -: mobilize as tolerated to keep pressure off ulcer * . Review of Systems - Medications/Allergies Allergies/Adverse Reactions: Allergies Allergy/AdvReac Type Severity Reaction Status Date / Time Penicillins Allergy Mild Verified 05/09/16 23:27 codeine Allergy Verified 05/09/16 23:52 Medications: Current Medications Acetaminophen (Tylenol) 1,000 mg PO Q6H PRN PRN Reason: Headache/Fever or Mild Pain Hydrocodone Bitart/Acetaminophen ([place] 5/325) 1 tab PO Q4H PRN PRN Reason: PAIN SCALE 1-5 Hydrocodone Bitart/Acetaminophen ([place] 5/325) 2 tab PO Q4H PRN PRN Reason: PAIN SCALE 6-10 Last Admin: 01/10/17 22:31 Dose: 2 tab Baclofen (Lioresal) 10 mg PO TID-[facility] Last Admin: 01/11/17 08:58 Dose: 10 mg Clonidine (Catapres) 0.1 mg PO Q4H PRN PRN Reason: Systolic BP > 180 Emtricitabine/Tenofovir (Truvada) 1 tab PO DAILY COUNTS [facility]CLUDE 234 BEDS AT [facility] Last Admin: 12/01/17 08:58 Dose: 1 tab Famotidine (Pepcid) 20 mg PO BID COUNTS INCLUDE 234 BEDS AT THE [facility] Last Admin: 01/11/17 08:58 Dose: 20 mg Ferrous Sulfate (Feosol) 325 mg PO BID-[facility] Last Admin: 01/11/17 08:58 Dose: 325 mg Folic Acid (Folvite) 1 mg PO DAILY COUNTS INCLUDE 234 BEDS AT [facility] Last Admin: 01/11/17 08:57 Dose: 1 mg Hydralazine HCl (Apresoline) 10 mg SLOW IVP Q4H PRN PRN Reason: Systolic BP > 180 Sodium Chloride (Normal Saline 0.9%) 1,000 mls @ 100 mls/hr IV .Q10H COUNTS INCLUDE 234 BEDS AT THE [facility] Last Admin: 01/10/17 22:19 Dose: 1,000 mls Vancomycin HCl 1 gm/ Device 200 mls @ 200 mls/hr IVPB 0200,1000,1800 COUNTS INCLUDE 234 BEDS AT [facility] Last Admin: 01/11/17 08:57 Dose: 200 mls Miscellaneous Medication (Pharmacy To Dose) 1 each IVPB PRN PRN PRN Reason: Pharmacy to dose Morphine Sulfate (Morphine) 4 mg SLOW IVP Q2H PRN PRN Reason: PAIN 6-10 WOUND CARE Last Admin: 01/09/17 11:07 Dose: 4 mg Morphine Sulfate/Sodium Chloride (Morphine 0.9% Nacl Pf 2 Mg/2ml) 2 mg IV Q2H PRN PRN Reason: PAIN 1-5 WOUND CARE Ondansetron HCl (Zofran Odt) 4 mg PO Q6H PRN PRN Reason: Nausea/Vomiting Ondansetron HCl (Zofran) 4 mg IVP Q6H PRN PRN Reason: Nausea/Vomiting Polyethylene Glycol (Miralax) 17 gm PO DAILY COUNTS INCLUDE 234 BEDS AT [facility] Last Admin: 01/11/17 08:58 Dose: 17 gm Raltegravir (Isentress) 400 mg PO BID COUNTS INCLUDE 234 BEDS AT [facility] Last Admin: 01/11/17 08:58 Dose: 400 mg Sodium Chloride (Flush - Normal Saline) 10 ml IVF PRN PRN PRN Reason: Saline Flush Tamsulosin HCl (Flomax) 0.4 mg PO DAILY COUNTS INCLUDE 234 BEDS AT [facility] Last Admin: 01/11/17 08:57 Dose: 0.4 mg Tramadol HCl (Ultram) 50 mg PO Q6H PRN PRN Reason: PAIN SCALE 1-5 Tramadol HCl (Ultram) 100 mg PO Q6H PRN PRN Reason: PAIN SCALE 6-10
[2017-01-11] MEDS: Sodium Chloride 0.9% 1,000 ML IV SCH ×2 (21:29→21:44)
[2017-01-12 01:19] LABS: Vancomycin, Trough 26.1 ug/mL
[2017-01-12] MEDS: Sodium Chloride 0.9% 1,000 ML IV SCH ×2 (05:17→06:40)
[2017-01-12 05:40] LABS: Anion Gap 9 mmol/L (10-20); BUN (Urea Nitrogen) 12 mg/dL (8.4-25.7); Calc. Creatinine Clearance 113 mL/min (70-130); Calcium 8.1 mg/dL (7.8-10.44); Carbon Dioxide 26 mmol/L (22-29); Chloride 106 mmol/L (98-107); Estimated GFR-MDRD Greater than 90; Glucose 101 mg/dL (70-105); Potassium 3.8 mmol/L (3.5-5.1); Sodium 137 mmol/L (136-145)
[2017-01-12 06:44] LABS: #Eosinphils 0.2 thou/uL (0.0-0.7); #Lymphocytes 1.8 thou/uL (1.20-3.40); #Monocytes 0.9 thou/uL (0.11-0.59); #Neutrophils 8.8 thou/uL (1.40-6.50); %Basophils 0.2 % (0.0-1.0); %Lymphocytes 15.1 % (21.0-51.0); %Monocytes 7.8 % (0.0-10.0); %Neutrophils 74.9 % (42.0-75.0); Anisocytosis MODERATE=16-30 cells (100X) (0-5/hpf); Band 4 % (5-11); Hemoglobin 8.7 g/dL (14.0-18.0); Hypochromia SLIGHT = 6-15 cells (100X) (0-5/hpf); Lymphocytes 15 % (21-51); MDiff Complete? YES; Mean Corpuscular HGB CONC 29.7 g/dL (32.0-36.0); Mean Corpuscular Hemoglobin 23.5 pg (27.0-31.0); Mean Platelet Volume 6.6 fL (7.4-10.4); Metamyelocyte 2 % (0-0); Monocytes 6 % (0-10); Myelocyte 1 % (0-0); Neutrophil 71 % (42-75); PLT Morphology Comment Appears Increased; Platelet Count 546 thou/uL (130-400); Polychromasia SLIGHT = 2-3 cells (100X) (0-2/hpf); RBC Distribution Width 18.2 % (11.5-14.5); Reactive Lymphocytes 1 % (0-10); Schistocytes SLIGHT = 2-5 cells (100X) (0-1/hpf); Tear Drops SLIGHT = 2-5 cells (100X) (0-1/hpf); White Blood Cell (WBC) Count 11.8 thou/uL (4.8-10.8)
[2017-01-12] MEDS: Ferrous Sulfate 325 MG TAB PO SCH ×2 (08:30→16:56)
[2017-01-12] MEDS: Baclofen 10 MG TAB PO SCH ×3 (08:30→16:56)
[2017-01-12] MEDS: Polyethylene Glycol 3350 17 GM Packet PO SCH (08:31)
[2017-01-12] MEDS: Raltegravir Potassium 400 MG TAB PO SCH ×2 (08:31→20:25)
[2017-01-12] MEDS: Famotidine 20 MG TAB PO SCH ×2 (08:31→20:25)
[2017-01-12] MEDS: Emtricitabine/Tenofovir 200-300 MG TAB PO SCH (08:31)
[2017-01-12] MEDS: Folic Acid 1 MG TAB PO SCH (08:31)
[2017-01-12] MEDS: Tamsulosin HCl 0.4 MG CAP PO SCH (08:31)
[2017-01-12] MEDS: Vancomycin HCl 1 GM in Premix Bag 1 BAG IVPB SCH ×2 (09:51→21:05)
--- NOTE | 2017-01-12 12:06 | PDOC.PN ---
- Subjective Encounter Start Date: 01/12/17 Encounter Start Time: 10:15 Subjective: no sob, feels better - Objective Resuscitation Status: Resuscitation Status FULL:Full Resuscitation MAR Reviewed: Yes Vital Signs & Weight: Vital Signs (12 hours) Temp Pulse Resp BP Pulse Ox 01/12/17 07:30 98.4 F 64 18 135/78 97 01/12/17 04:07 98.0 F 76 16 146/69 H 97 Weight Admit Weight 117 lb Weight 117 lb I&O: 01/11/17 01/12/17 01/13/17 06:59 06:59 06:59 Intake Total 3235 5430 Output Total 3300 3025 Balance -65 2405 Result Diagrams: 01/12/17 04:51 01/12/17 04:51 Phys Exam - Physical Examination HEENT: PERRLA, moist MMs Neck: no JVD, supple Respiratory: no wheezing, no rales Cardiovascular: RRR, no significant murmur Gastrointestinal: soft, no distention, positive bowel sounds Musculoskeletal: pulses present left bka, left thigh in wound vac paraparesis with flexion contractures of LE Dx/Plan (1) Status post below knee amputation of left lower extremity Code(s): Z89.512 - ACQUIRED ABSENCE OF LEFT LEG BELOW KNEE Status: Acute Comment: on 01/08/2017 (2) Gangrene of left foot Code(s): I96 - GANGRENE, NOT ELSEWHERE CLASSIFIED Status: Acute (3) HLD (hyperlipidemia) Code(s): E78.5 - HYPERLIPIDEMIA, UNSPECIFIED Status: Chronic Qualifiers: Hyperlipidemia type: unspecified Qualified Code(s): E78.5 - Hyperlipidemia , unspecified (4) HTN (hypertension) Code(s): I10 - ESSENTIAL (PRIMARY) HYPERTENSION Status: Chronic Qualifiers: Hypertension type: essential hypertension Qualified Code(s): I10 - Essential (primary) hypertension (5) Anemia, chronic disease Code(s): D63.8 - ANEMIA IN OTHER CHRONIC DISEASES CLASSIFIED ELSEWHERE Status : Chronic Comment: Serial monitoring, transfuse 1u PRBC's today, CBC in am (6) Bilateral knee contractures Code(s): M24.561 - CONTRACTURE, RIGHT KNEE; M24.562 - CONTRACTURE, LEFT KNEE Status: Chronic Comment: Severe contractures of LE's, PT/OT for evaluation (7) Decubitus ulcers Code(s): L89.90 - PRESSURE ULCER OF UNSPECIFIED SITE, UNSPECIFIED STAGE Status : Chronic Qualifiers: Pressure ulcer location: hip Pressure ulcer stage: unstageable Laterality : left Qualified Code(s): L89.220 - Pressure ulcer of left hip, unstageable Comment: s/p debridement 01/08/17, local wound care (8) HIV (human immunodeficiency virus infection) Status: Chronic Comment: Continue anti-retroviral therapy (9) Neurogenic bladder Code(s): N31.9 - NEUROMUSCULAR DYSFUNCTION OF BLADDER, UNSPECIFIED Status: Chronic Comment: Chronic indwelling Thornton catheter (10) Paraparesis Code(s): G82.20 - PARAPLEGIA, UNSPECIFIED Status: Chronic (11) Protein-calorie malnutrition, moderate Code(s): E44.0 - MODERATE PROTEIN-CALORIE MALNUTRITION Status: Chronic Comment: Ensure Enlive TID - Plan is on vanc 1g q12h -: Hb is at 8.7g after total of 2 units of prbcs -: morphine prn, baclofen -: will dc iv fluids -: wants to go to a different snf for discharge, for the same * . Review of Systems - Medications/Allergies Allergies/Adverse Reactions: Allergies Allergy/AdvReac Type Severity Reaction Status Date / Time Penicillins Allergy Mild Verified 05/09/16 23:27 codeine Allergy Verified 05/09/16 23:52 Medications: Current Medications Acetaminophen (Tylenol) 1,000 mg PO Q6H PRN PRN Reason: Headache/Fever or Mild Pain Hydrocodone Bitart/Acetaminophen ([place] 5/325) 1 tab PO Q4H PRN PRN Reason: PAIN SCALE 1-5 Hydrocodone Bitart/Acetaminophen ([place] 5/325) 2 tab PO Q4H PRN PRN Reason: PAIN SCALE 6-10 Last Admin: 01/10/17 22:31 Dose: 2 tab Baclofen (Lioresal) 10 mg PO TID-[facility] Last Admin: 01/12/17 08:30 Dose: 10 mg Clonidine (Catapres) 0.1 mg PO Q4H PRN PRN Reason: Systolic BP > 180 Emtricitabine/Tenofovir (Truvada) 1 tab PO DAILY [facility] Last Admin: 01/12/17 08:31 Dose: 1 tab Famotidine (Pepcid) 20 mg PO BID [facility] Last Admin: 01/12/17 08:31 Dose: 20 mg Ferrous Sulfate (Feosol) 325 mg PO BID-[facility] Last Admin: 01/12/17 08:30 Dose: 325 mg Folic Acid (Folvite) 1 mg PO DAILY [facility] Last Admin: 01/12/17 08:31 Dose: 1 mg Hydralazine HCl (Apresoline) 10 mg SLOW IVP Q4H PRN PRN Reason: Systolic BP > 180 Vancomycin HCl 1 gm/ Device 200 mls @ 200 mls/hr IVPB 1000,2200 [facility] Last Admin: 01/12/17 09:51 Dose: 200 mls Miscellaneous Medication (Pharmacy To Dose) 1 each IVPB PRN PRN PRN Reason: Pharmacy to dose Morphine Sulfate (Morphine) 4 mg SLOW IVP Q2H PRN PRN Reason: PAIN 6-10 WOUND CARE Last Admin: 01/09/17 11:07 Dose: 4 mg Morphine Sulfate/Sodium Chloride (Morphine 0.9% Nacl Pf 2 Mg/2ml) 2 mg IV Q2H PRN PRN Reason: PAIN 1-5 WOUND CARE Ondansetron HCl (Zofran Odt) 4 mg PO Q6H PRN PRN Reason: Nausea/Vomiting Ondansetron HCl (Zofran) 4 mg IVP Q6H PRN PRN Reason: Nausea/Vomiting Polyethylene Glycol (Miralax) 17 gm PO DAILY [facility] Last Admin: 01/12/17 08:31 Dose: Not Given Raltegravir (Isentress) 400 mg PO BID [facility] Last Admin: 01/12/17 08:31 Dose: 400 mg Sodium Chloride (Flush - Normal Saline) 10 ml IVF PRN PRN PRN Reason: Saline Flush Tamsulosin HCl (Flomax) 0.4 mg PO DAILY [facility] Last Admin: 01/12/17 08:31 Dose: 0.4 mg Tramadol HCl (Ultram) 50 mg PO Q6H PRN PRN Reason: PAIN SCALE 1-5 Tramadol HCl (Ultram) 100 mg PO Q6H PRN PRN Reason: PAIN SCALE 6-10
[2017-01-13 05:52] LABS: #Eosinphils 0.2 thou/uL (0.0-0.7); #Lymphocytes 1.5 thou/uL (1.20-3.40); #Monocytes 0.6 thou/uL (0.11-0.59); #Neutrophils 6.8 thou/uL (1.40-6.50); %Eosinophils 2.4 % (0.0-10.0); %Lymphocytes 16.5 % (21.0-51.0); %Monocytes 6.6 % (0.0-10.0); %Neutrophils 74.4 % (42.0-75.0); Hemoglobin 8.7 g/dL (14.0-18.0); Mean Corpuscular HGB CONC 29.6 g/dL (32.0-36.0); Mean Corpuscular Hemoglobin 23.3 pg (27.0-31.0); Mean Corpuscular Volume 78.9 fl (80.0-94.0); Mean Platelet Volume 6.4 fL (7.4-10.4); Platelet Count 573 thou/uL (130-400); RBC Distribution Width 19.4 % (11.5-14.5); Red Blood Cell (RBC) Count 3.72 mill/uL (4.70-6.10); White Blood Cell (WBC) Count 9.1 thou/uL (4.8-10.8)
[2017-01-13 06:07] LABS: Anion Gap 8 mmol/L (10-20); BUN (Urea Nitrogen) 14 mg/dL (8.4-25.7); Calc. Creatinine Clearance 115 mL/min (70-130); Calcium 8.3 mg/dL (7.8-10.44); Carbon Dioxide 26 mmol/L (22-29); Chloride 106 mmol/L (98-107); Estimated GFR-MDRD Greater than 90; Glucose 96 mg/dL (70-105); Potassium 3.8 mmol/L (3.5-5.1); Sodium 136 mmol/L (136-145)
[2017-01-13] MEDS: Polyethylene Glycol 3350 17 GM Packet PO SCH (09:19)
[2017-01-13] MEDS: Vancomycin HCl 1 GM in Premix Bag 1 BAG IVPB SCH ×2 (09:19→22:53)
[2017-01-13] MEDS: Emtricitabine/Tenofovir 200-300 MG TAB PO SCH (09:20)
[2017-01-13] MEDS: Raltegravir Potassium 400 MG TAB PO SCH ×2 (09:20→22:47)
[2017-01-13] MEDS: Tamsulosin HCl 0.4 MG CAP PO SCH (09:20)
[2017-01-13] MEDS: Baclofen 10 MG TAB PO SCH ×3 (09:20→17:40)
[2017-01-13] MEDS: Ferrous Sulfate 325 MG TAB PO SCH ×2 (09:20→17:40)
[2017-01-13] MEDS: Famotidine 20 MG TAB PO SCH ×2 (09:20→22:47)
[2017-01-13] MEDS: Folic Acid 1 MG TAB PO SCH (09:21)
--- NOTE | 2017-01-13 12:28 | PDOC.PN ---
- Subjective Encounter Start Date: 01/13/17 Encounter Start Time: 10:15 Subjective: feels better, no pain -: tolerating diet - Objective Resuscitation Status: Resuscitation Status FULL:Full Resuscitation MAR Reviewed: Yes Vital Signs & Weight: Vital Signs (12 hours) Temp Pulse Resp BP Pulse Ox 01/13/17 12:23 98 F 74 20 119/70 97 01/13/17 08:54 98.5 F 76 16 153/76 H 99 01/13/17 04:18 97.8 F 67 17 133/76 98 Weight Admit Weight 117 lb Weight 117 lb I&O: 01/12/17 01/13/17 01/14/17 06:59 06:59 06:59 Intake Total 5430 2790 Output Total 3025 4100 Balance 2405 -1310 Result Diagrams: 01/13/17 05:13 01/13/17 05:13 Phys Exam - Physical Examination HEENT: PERRLA, moist MMs Neck: no JVD, supple Respiratory: no wheezing, no rales Cardiovascular: RRR, no significant murmur Gastrointestinal: soft, no distention, positive bowel sounds Musculoskeletal: pulses present wound vac over left thigh, has left bka Neurological: non-focal has chronic paraparesis Psychiatric: A&O x 3 Dx/Plan (1) Status post below knee amputation of left lower extremity Code(s): Z89.512 - ACQUIRED ABSENCE OF LEFT LEG BELOW KNEE Status: Acute Comment: on 01/08/2017 (2) Gangrene of left foot Code(s): I96 - GANGRENE, NOT ELSEWHERE CLASSIFIED Status: Acute (3) HLD (hyperlipidemia) Code(s): E78.5 - HYPERLIPIDEMIA, UNSPECIFIED Status: Chronic Qualifiers: Hyperlipidemia type: unspecified Qualified Code(s): E78.5 - Hyperlipidemia , unspecified (4) HTN (hypertension) Code(s): I10 - ESSENTIAL (PRIMARY) HYPERTENSION Status: Chronic Qualifiers: Hypertension type: essential hypertension Qualified Code(s): I10 - Essential (primary) hypertension (5) Anemia, chronic disease Code(s): D63.8 - ANEMIA IN OTHER CHRONIC DISEASES CLASSIFIED ELSEWHERE Status : Chronic (6) Bilateral knee contractures Code(s): M24.561 - CONTRACTURE, RIGHT KNEE; M24.562 - CONTRACTURE, LEFT KNEE Status: Chronic Comment: Severe contractures of LE's, PT/OT for evaluation (7) Decubitus ulcers Code(s): L89.90 - PRESSURE ULCER OF UNSPECIFIED SITE, UNSPECIFIED STAGE Status : Chronic Qualifiers: Pressure ulcer location: hip Pressure ulcer stage: unstageable Laterality : left Qualified Code(s): L89.220 - Pressure ulcer of left hip, unstageable Comment: s/p debridement 01/08/17, local wound care (8) HIV (human immunodeficiency virus infection) Status: Chronic Comment: Continue anti-retroviral therapy (9) Neurogenic bladder Code(s): N31.9 - NEUROMUSCULAR DYSFUNCTION OF BLADDER, UNSPECIFIED Status: Chronic Comment: Chronic indwelling Thornton catheter (10) Paraparesis Code(s): G82.20 - PARAPLEGIA, UNSPECIFIED Status: Chronic (11) Protein-calorie malnutrition, moderate Code(s): E44.0 - MODERATE PROTEIN-CALORIE MALNUTRITION Status: Chronic Comment: Ensure Enlive TID - Plan is on vanc 1g q12h, will need daily dosing for snf per advice -: is on isentress and truvada -: oral iron -: wound care -: baclofen tid, morphine and norco prn * . Review of Systems - Medications/Allergies Allergies/Adverse Reactions: Allergies Allergy/AdvReac Type Severity Reaction Status Date / Time Penicillins Allergy Mild Verified 05/09/16 23:27 codeine Allergy Verified 05/09/16 23:52 Medications: Current Medications Acetaminophen (Tylenol) 1,000 mg PO Q6H PRN PRN Reason: Headache/Fever or Mild Pain Hydrocodone Bitart/Acetaminophen ([place] 5/325) 1 tab PO Q4H PRN PRN Reason: PAIN SCALE 1-5 Hydrocodone Bitart/Acetaminophen ([place] 5/325) 2 tab PO Q4H PRN PRN Reason: PAIN SCALE 6-10 Last Admin: 01/10/17 22:31 Dose: 2 tab Baclofen (Lioresal) 10 mg PO TID-[facility] Last Admin: 01/13/17 11:22 Dose: 10 mg Clonidine (Catapres) 0.1 mg PO Q4H PRN PRN Reason: Systolic BP > 180 Emtricitabine/Tenofovir (Truvada) 1 tab PO DAILY [facility] Last Admin: 01/13/17 09:20 Dose: 1 tab Famotidine (Pepcid) 20 mg PO BID [facility] Last Admin: 01/13/17 09:20 Dose: 20 mg Ferrous Sulfate (Feosol) 325 mg PO BID-[facility] Last Admin: 01/13/17 09:20 Dose: 325 mg Folic Acid (Folvite) 1 mg PO DAILY [facility] Last Admin: 01/13/17 09:21 Dose: 1 mg Hydralazine HCl (Apresoline) 10 mg SLOW IVP Q4H PRN PRN Reason: Systolic BP > 180 Vancomycin HCl 1 gm/ Device 200 mls @ 200 mls/hr IVPB 1000,2200 [facility] Last Admin: 01/13/17 09:19 Dose: 200 mls Miscellaneous Medication (Pharmacy To Dose) 1 each IVPB PRN PRN PRN Reason: Pharmacy to dose Morphine Sulfate (Morphine) 4 mg SLOW IVP Q2H PRN PRN Reason: PAIN 6-10 WOUND CARE Last Admin: 01/09/17 11:07 Dose: 4 mg Morphine Sulfate/Sodium Chloride (Morphine 0.9% Nacl Pf 2 Mg/2ml) 2 mg IV Q2H PRN PRN Reason: PAIN 1-5 WOUND CARE Ondansetron HCl (Zofran Odt) 4 mg PO Q6H PRN PRN Reason: Nausea/Vomiting Ondansetron HCl (Zofran) 4 mg IVP Q6H PRN PRN Reason: Nausea/Vomiting Polyethylene Glycol (Miralax) 17 gm PO DAILY [facility] Last Admin: 01/13/17 09:19 Dose: 17 gm Raltegravir (Isentress) 400 mg PO BID [facility] Last Admin: 01/13/17 09:20 Dose: 400 mg Sodium Chloride (Flush - Normal Saline) 10 ml IVF PRN PRN PRN Reason: Saline Flush Tamsulosin HCl (Flomax) 0.4 mg PO DAILY [facility] Last Admin: 01/13/17 09:20 Dose: 0.4 mg Tramadol HCl (Ultram) 50 mg PO Q6H PRN PRN Reason: PAIN SCALE 1-5 Tramadol HCl (Ultram) 100 mg PO Q6H PRN PRN Reason: PAIN SCALE 6-10
[2017-01-13 21:38] LABS: Vancomycin, Trough 10.9 ug/mL
[2017-01-13] MEDS: Vancomycin HCl 1.25 GM in Sodium Chloride 0.9% 250 ML 250 ML IVPB SCH (22:46)
[2017-01-14] MEDS: Raltegravir Potassium 400 MG TAB PO SCH ×2 (09:00→20:23)
[2017-01-14] MEDS: Ferrous Sulfate 325 MG TAB PO SCH ×2 (09:00→18:08)
[2017-01-14] MEDS: Baclofen 10 MG TAB PO SCH ×3 (09:00→18:08)
[2017-01-14] MEDS: Tamsulosin HCl 0.4 MG CAP PO SCH (09:00)
[2017-01-14] MEDS: Famotidine 20 MG TAB PO SCH ×2 (09:00→20:23)
[2017-01-14] MEDS: Vancomycin HCl 1.25 GM in Sodium Chloride 0.9% 250 ML 250 ML IVPB SCH (09:00)
[2017-01-14] MEDS: Emtricitabine/Tenofovir 200-300 MG TAB PO SCH (09:01)
[2017-01-14] MEDS: Polyethylene Glycol 3350 17 GM Packet PO SCH (09:01)
[2017-01-14] MEDS: Folic Acid 1 MG TAB PO SCH (09:01)
--- NOTE | 2017-01-14 11:14 | PDOC.PN ---
- Subjective Encounter Start Date: 01/14/17 Encounter Start Time: 10:00 Subjective: feels better, eating well, no complaints - Objective Resuscitation Status: Resuscitation Status FULL:Full Resuscitation MAR Reviewed: Yes Vital Signs & Weight: Vital Signs (12 hours) Temp Pulse Resp BP Pulse Ox 01/14/17 07:19 98.1 F 61 16 130/73 97 01/14/17 04:00 98.3 F 60 16 153/88 H 97 01/14/17 00:41 98.2 F 71 18 131/75 99 Weight Admit Weight 117 lb Weight 117 lb I&O: 01/13/17 01/14/17 01/15/17 06:59 06:59 06:59 Intake Total 2790 1250 250 Output Total 4100 1200 1000 Balance -1310 50 -750 Result Diagrams: 01/13/17 05:13 01/13/17 05:13 Phys Exam - Physical Examination HEENT: PERRLA, moist MMs Neck: no JVD, supple Respiratory: no wheezing, no rales Cardiovascular: RRR, no significant murmur Gastrointestinal: soft, non-tender, positive bowel sounds left hip in wound vac, left bka Neurological: non-focal chronic paraparesis Psychiatric: A&O x 3 Dx/Plan (1) Status post below knee amputation of left lower extremity Code(s): Z89.512 - ACQUIRED ABSENCE OF LEFT LEG BELOW KNEE Status: Acute Comment: on 01/08/2017 (2) Gangrene of left foot Code(s): I96 - GANGRENE, NOT ELSEWHERE CLASSIFIED Status: Acute (3) HLD (hyperlipidemia) Code(s): E78.5 - HYPERLIPIDEMIA, UNSPECIFIED Status: Chronic Qualifiers: Hyperlipidemia type: unspecified Qualified Code(s): E78.5 - Hyperlipidemia , unspecified (4) HTN (hypertension) Code(s): I10 - ESSENTIAL (PRIMARY) HYPERTENSION Status: Chronic Qualifiers: Hypertension type: essential hypertension Qualified Code(s): I10 - Essential (primary) hypertension (5) Anemia, chronic disease Code(s): D63.8 - ANEMIA IN OTHER CHRONIC DISEASES CLASSIFIED ELSEWHERE Status : Chronic (6) Bilateral knee contractures Code(s): M24.561 - CONTRACTURE, RIGHT KNEE; M24.562 - CONTRACTURE, LEFT KNEE Status: Chronic Comment: Severe contractures of LE's, PT/OT for evaluation (7) Decubitus ulcers Code(s): L89.90 - PRESSURE ULCER OF UNSPECIFIED SITE, UNSPECIFIED STAGE Status : Chronic Qualifiers: Pressure ulcer location: hip Pressure ulcer stage: unstageable Laterality : left Qualified Code(s): L89.220 - Pressure ulcer of left hip, unstageable Comment: s/p debridement 01/08/17, local wound care (8) HIV (human immunodeficiency virus infection) Status: Chronic Comment: Continue anti-retroviral therapy (9) Neurogenic bladder Code(s): N31.9 - NEUROMUSCULAR DYSFUNCTION OF BLADDER, UNSPECIFIED Status: Chronic Comment: Chronic indwelling Thornton catheter (10) Paraparesis Code(s): G82.20 - PARAPLEGIA, UNSPECIFIED Status: Chronic (11) Protein-calorie malnutrition, moderate Code(s): E44.0 - MODERATE PROTEIN-CALORIE MALNUTRITION Status: Chronic Comment: Ensure Enlive TID - Plan is on vanc 1g q12h -: bld cs are -ve -: consult for help with outpt antibiotics -: dc plan per gen surgery/Linda advice -: ?picc line per * . Review of Systems - Medications/Allergies Allergies/Adverse Reactions: Allergies Allergy/AdvReac Type Severity Reaction Status Date / Time Penicillins Allergy Mild Verified 05/09/16 23:27 codeine Allergy Verified 05/09/16 23:52 Medications: Current Medications Acetaminophen (Tylenol) 1,000 mg PO Q6H PRN PRN Reason: Headache/Fever or Mild Pain Hydrocodone Bitart/Acetaminophen ([place] 5/325) 1 tab PO Q4H PRN PRN Reason: PAIN SCALE 1-5 Hydrocodone Bitart/Acetaminophen ([place] 5/325) 2 tab PO Q4H PRN PRN Reason: PAIN SCALE 6-10 Last Admin: 01/10/17 22:31 Dose: 2 tab Baclofen (Lioresal) 10 mg PO TID-[facility] Last Admin: 01/14/17 09:00 Dose: 10 mg Clonidine (Catapres) 0.1 mg PO Q4H PRN PRN Reason: Systolic BP > 180 Emtricitabine/Tenofovir (Truvada) 1 tab PO DAILY [facility] Last Admin: 01/14/17 09:01 Dose: 1 tab Famotidine (Pepcid) 20 mg PO BID [facility] Last Admin: 01/14/17 09:00 Dose: 20 mg Ferrous Sulfate (Feosol) 325 mg PO BID-[facility] Last Admin: 01/14/17 09:00 Dose: 325 mg Folic Acid (Folvite) 1 mg PO DAILY [facility] Last Admin: 01/14/17 09:01 Dose: 1 mg Hydralazine HCl (Apresoline) 10 mg SLOW IVP Q4H PRN PRN Reason: Systolic BP > 180 Vancomycin HCl 1.25 gm/ Sodium (Chloride) 250 mls @ 166.667 mls/hr IVPB 1000, 2200 [facility] Last Admin: 01/14/17 09:00 Dose: 250 mls Miscellaneous Medication (Pharmacy To Dose) 1 each IVPB PRN PRN PRN Reason: Pharmacy to dose Morphine Sulfate (Morphine) 4 mg SLOW IVP Q2H PRN PRN Reason: PAIN 6-10 WOUND CARE Last Admin: 01/09/17 11:07 Dose: 4 mg Morphine Sulfate/Sodium Chloride (Morphine 0.9% Nacl Pf 2 Mg/2ml) 2 mg IV Q2H PRN PRN Reason: PAIN 1-5 WOUND CARE Ondansetron HCl (Zofran Odt) 4 mg PO Q6H PRN PRN Reason: Nausea/Vomiting Ondansetron HCl (Zofran) 4 mg IVP Q6H PRN PRN Reason: Nausea/Vomiting Polyethylene Glycol (Miralax) 17 gm PO DAILY [facility] Last Admin: 01/14/17 09:01 Dose: Not Given Raltegravir (Isentress) 400 mg PO BID [facility] Last Admin: 01/14/17 09:00 Dose: 400 mg Sodium Chloride (Flush - Normal Saline) 10 ml IVF PRN PRN PRN Reason: Saline Flush Last Admin: 01/14/17 09:01 Dose: 10 ml Tamsulosin HCl (Flomax) 0.4 mg PO DAILY [facility] Last Admin: 01/14/17 09:00 Dose: 0.4 mg Tramadol HCl (Ultram) 50 mg PO Q6H PRN PRN Reason: PAIN SCALE 1-5 Tramadol HCl (Ultram) 100 mg PO Q6H PRN PRN Reason: PAIN SCALE 6-10
[2017-01-14] MEDS: Morphine 4 MG/ML VIAL SLOW IVP PRN (13:30)
[2017-01-14] MEDS: traMADol HCl 50 MG TAB PO PRN ×2 (16:08→23:42)
[2017-01-14] MEDS: metroNIDAZOLE 500 MG TAB PO SCH ×2 (16:08→20:23)
--- NOTE | 2017-01-14 17:01 | CON ---
DATE OF CONSULTATION: 01/14/2017 REASON FOR CONSULTATION: Decubitus ulcers, HIV infection. 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 The patient h ad been admitted in April this year with multiple decubitus ulcers. He had then progression of parap aresis with development of paraplegia, contractures and multiple decubitus ulcers in lower extremity and pelvis. The patient ended up with a suprapubic catheter and has been restarted on his antiretrov iral therapy. I do not have his latest CD4 cell counts, but he was admitted at this time with worsen ing pressure ulcerations in the left foot, which ended up in BKA amputation. The pathology of the [place] specimen showed ischemic ulceration with gangrene. He also had ulcers in the ischial area. T he one in the left side is stage 3, there is a stage 4 with palpable bone on the presacral region in the left ischium area. Currently, he is feeling better after the amputation. No headaches, visual s ymptoms, good appetite. No dyspnea or chest pain, no cough, no abdominal pain. Voiding with the ass istance of the suprapubic catheter. A little bit of drainage from the penis. No diarrhea. PAST MEDICAL HISTORY: Longstanding HIV infection with interruption of treatment for 2 years and then resumption the beginning of this year. His latest CD4 cell count was in my record then do not recal l at this time. 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 PAST SURGICAL HISTORY: Includes sinus surgery, minor interventions until this BK amputation and debr idement of the ischial area. ALLERGIES: PENICILLIN with rash. FAMILY HISTORY: Hypertension. SOCIAL HISTORY: Former smoker, lives in a alf. CURRENT MEDICATIONS: Include vancomycin, Truvada, Isentress and p.r.n. meds. PHYSICAL EXAMINATION: VITAL SIGNS: T-max 98.3, blood pressure 102/67, pulse is 75, respirations 16 and O2 sat 97%. GENERAL: Appears in no distress, oriented, pleasant. SKIN: Shows the left-sided areas of pressure ulceration is stage 4 in the ischium, stage 3 in the fe mur. The amputation site of the BKA on the left side. Suprapubic catheter with normal appearing exi t site, peripheral IV access. No lymphadenopathy. HEENT: Ocular movements are conjugate. Sclerae are white. Pupils are equal. Oral cavity with stil l quite a few teeth in place with some decay. NECK: Supple, no jugular venous distention. LUNGS: With symmetric clear breath sounds. HEART: S1, S2, regular rate. No S3 or S4. ABDOMEN: Soft, not distended or tender. No ascites, no bladder distention. EXTREMITIES: Complete paraplegia with contractures in the lower extremities. LABORATORY DATA: White cell count was up to 11.8, now down to 9.1, hemoglobin 8.7, platelets 573, 74 % neutrophils. Sodium 136, creatinine 0.54. Transaminases normal, alkaline phosphatase normal. Alb umin 2.0. Two sets of blood cultures, no growth at 5 days, cultures from 01/07/2017 from ulcer wound culture with 3 anaerobic or negative rods, 1 gram negative cedric with pending susceptibility results. I am not sure that they going to give us susceptibility results here, the gram negative cedric that was in the rare amounts. ASSESSMENT: 1. Longstanding human immunodeficiency virus infection with no back on antiretroviral therapy. 2. Decubitus ulcers associated with neurological impairment, mostly on the left side, status post be low-knee amputation, left foot. 3. 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 DISCUSSION: The patient's left foot infection now has had its resolution with a BKA amputation with the left ischial wound infection. We will stage the area with a pelvic MRI or CT scan, whichever he can fit in, I do not think he can fit in an MRI because of contractures the wiser antimicrobial thera py with the results of the cultures in mind. I am afraid that susceptibilities are not going to be o rdered for the left ischium, gram negative. We will switch him to oral Cipro plus Flagyl for at leas t 4 weeks.
--- NOTE | 2017-01-14 18:30 | DIS ---
DATE OF ADMISSION: 01/07/2017 DATE OF DISCHARGE: 01/14/2017 DISCHARGE DISPOSITION: To [facility]. PRIMARY DISCHARGE DIAGNOSES: The patient is status post left BKA for gangrene and multiple decubitus in the left foot and ankle area, left ischial area decubitus ulceration in wound VAC. SECONDARY DISCHARGE DIAGNOSES: Bilateral knee contractures with paraparesis, HIV, hypertension, mandarin speaking nanny cayden anemia, dyslipidemia, neurogenic bladder, moderate protein malnutrition. PROCEDURES DONE DURING HOSPITALIZATION: The patient has had left BKA with debridement of left ischia l decubitus done by Dr. Cesar. Blood cultures x2, no growth. Initial cultures were obtained on from the wound have grown anaerobic gram-negative rods and gram negative rods. Discharge H&H are 8.7 and 29. His H&H had dropped down to 6.5 and 23 on 01/08/2017. Discharge BUN 14, creatinine 0.5, albumin is 2.0. CD4 count on 01/02/2017 was 123. DISCHARGE MEDICATIONS: Baclofen 10 mg p.o. 4 times daily, ciprofloxacin 500 mg p.o. twice daily for 4 weeks, Flagyl 500 mg p.o. 3 times daily for 4 weeks both for decubitus ulcer likely stage IV with l ikely osteomyelitis of the ischium, Truvada 1 tablet daily, Isentress 400 mg twice daily, MiraLax 17 grams daily, Flomax 0.4 mg daily, Motrin p.r.n. for pain, folic acid 1 mg daily, ferrous sulfate 325 mg p.o. twice daily. ALLERGIES: PENICILLIN AND CODEINE. INPATIENT CONSULTS: Dr. Cesar for General Surgery, Dr. Mckeon for Infectious Disease. DISCHARGE PLAN: The patient to follow up with Dr. Cesar as advised and Dr. Mckeon in 3 weeks. BRIEF COURSE DURING HOSPITALIZATION: The patient initially got admitted on 01/07/2017 after he was s ent from long-term due to increase in size of ulcers and malodorous discharge. He was found to fu ve had gangrene of the left ankle with multiple decubitus in the foot and left ischial decubitus ulce rations as well. In view of severe necrosis and gangrene, the patient has had consultation with Dr. Cesar. He subsequently has had left BKA done due to chronic contractures and nonhealing nature of the ulcers. The patient has had 2 units of blood transfusion as well for his anemia. His hemoglobin is stable around 8 grams at the time of discharge. He has had consultation with Dr. Mckeon. The анна hickman's wound cultures are growing anaerobic gram-negative rods and gram-negative bacteria, which were unlikely to show sensitivities. These were obtained on 01/07/2017 and yet have not grown or shown a ny sensitivity so far. He was placed on Cipro and Flagyl at the time of discharge. He needs to cont inue these two antibiotics for 4 weeks. He will also be getting a CT scan of the pelvis without cont rast to ascertain whether he has osteomyelitis of the ischial area. A total of 35 minutes was spent on discharge plan. The patient needs followup with Dr. Cesar as ad darbyed and wound care with wound VAC for the left hip, ischial decubitus, needs to be continued at the long-term. Please see a [id number] documentation on [facility] for the day of discharge.
[2017-01-14] MEDS: Ciprofloxacin 500 MG TAB PO SCH (20:23)
[2017-01-15] MEDS: Ciprofloxacin 500 MG TAB PO SCH (06:27)
[2017-01-15] MEDS: Famotidine 20 MG TAB PO SCH (09:45)
[2017-01-15] MEDS: Folic Acid 1 MG TAB PO SCH (09:45)
[2017-01-15] MEDS: metroNIDAZOLE 500 MG TAB PO SCH (09:45)
[2017-01-15] MEDS: Tamsulosin HCl 0.4 MG CAP PO SCH (09:45)
[2017-01-15] MEDS: Ferrous Sulfate 325 MG TAB PO SCH (09:45)
[2017-01-15] MEDS: traMADol HCl 50 MG TAB PO PRN (09:46)
[2017-01-15] MEDS: Emtricitabine/Tenofovir 200-300 MG TAB PO SCH (09:46)
[2017-01-15] MEDS: Raltegravir Potassium 400 MG TAB PO SCH (09:46)
[2017-01-15] MEDS: Baclofen 10 MG TAB PO SCH (09:46)
[2017-01-15] MEDS: Polyethylene Glycol 3350 17 GM Packet PO SCH (09:46)
[2017-01-15 10:06] VITALS: BP 126/78; TEMP 98.2
--- NOTE | 2017-01-15 10:44 | PDOC.PN ---
- Subjective Encounter Start Date: 01/15/17 Encounter Start Time: 10:30 Subjective: no sob, feels better - Objective Resuscitation Status: Resuscitation Status FULL:Full Resuscitation MAR Reviewed: Yes Vital Signs & Weight: Vital Signs (12 hours) Temp Pulse Resp BP Pulse Ox 01/15/17 08:00 98.2 F 81 18 126/78 98 01/15/17 04:44 98.4 F 69 24 H 128/64 96 01/14/17 23:38 98.2 F 76 22 H 116/70 98 Weight Admit Weight 117 lb Weight 117 lb I&O: 01/14/17 01/15/17 01/16/17 06:59 06:59 06:59 Intake Total 1250 550 Output Total 1200 2800 Balance 50 -2250 Result Diagrams: 01/13/17 05:13 01/13/17 05:13 Phys Exam - Physical Examination HEENT: PERRLA, moist MMs Neck: no JVD, supple Respiratory: no wheezing, no rales Cardiovascular: RRR, no significant murmur Gastrointestinal: soft, non-tender, positive bowel sounds Musculoskeletal: pulses present left bka, left hip in wound care Neurological: non-focal chronic paraparesis Psychiatric: A&O x 3 Dx/Plan (1) Status post below knee amputation of left lower extremity Code(s): Z89.512 - ACQUIRED ABSENCE OF LEFT LEG BELOW KNEE Status: Acute Comment: on 01/08/2017 (2) Gangrene of left foot Code(s): I96 - GANGRENE, NOT ELSEWHERE CLASSIFIED Status: Acute (3) HLD (hyperlipidemia) Code(s): E78.5 - HYPERLIPIDEMIA, UNSPECIFIED Status: Chronic Qualifiers: Hyperlipidemia type: unspecified Qualified Code(s): E78.5 - Hyperlipidemia , unspecified (4) HTN (hypertension) Code(s): I10 - ESSENTIAL (PRIMARY) HYPERTENSION Status: Chronic Qualifiers: Hypertension type: essential hypertension Qualified Code(s): I10 - Essential (primary) hypertension (5) Anemia, chronic disease Code(s): D63.8 - ANEMIA IN OTHER CHRONIC DISEASES CLASSIFIED ELSEWHERE Status : Chronic (6) Bilateral knee contractures Code(s): M24.561 - CONTRACTURE, RIGHT KNEE; M24.562 - CONTRACTURE, LEFT KNEE Status: Chronic Comment: Severe contractures of LE's, PT/OT for evaluation (7) Decubitus ulcers Code(s): L89.90 - PRESSURE ULCER OF UNSPECIFIED SITE, UNSPECIFIED STAGE Status : Chronic Qualifiers: Pressure ulcer location: hip Pressure ulcer stage: unstageable Laterality : left Qualified Code(s): L89.220 - Pressure ulcer of left hip, unstageable Comment: s/p debridement 01/08/17, local wound care (8) HIV (human immunodeficiency virus infection) Status: Chronic Comment: Continue anti-retroviral therapy (9) Neurogenic bladder Code(s): N31.9 - NEUROMUSCULAR DYSFUNCTION OF BLADDER, UNSPECIFIED Status: Chronic Comment: Chronic indwelling Thornton catheter (10) Paraparesis Code(s): G82.20 - PARAPLEGIA, UNSPECIFIED Status: Chronic (11) Protein-calorie malnutrition, moderate Code(s): E44.0 - MODERATE PROTEIN-CALORIE MALNUTRITION Status: Chronic Comment: Ensure Enlive TID - Plan CT pelvis today -: may dc to snf -: to f/u with and as adv. * . Review of Systems - Medications/Allergies Allergies/Adverse Reactions: Allergies Allergy/AdvReac Type Severity Reaction Status Date / Time Penicillins Allergy Mild Verified 05/09/16 23:27 codeine Allergy Verified 05/09/16 23:52 Medications: Current Medications Acetaminophen (Tylenol) 1,000 mg PO Q6H PRN PRN Reason: Headache/Fever or Mild Pain Hydrocodone Bitart/Acetaminophen ([place] 5/325) 1 tab PO Q4H PRN PRN Reason: PAIN SCALE 1-5 Hydrocodone Bitart/Acetaminophen ([place] 5/325) 2 tab PO Q4H PRN PRN Reason: PAIN SCALE 6-10 Last Admin: 01/10/17 22:31 Dose: 2 tab Baclofen (Lioresal) 10 mg PO TID[facility] Last Admin: 01/15/17 09:46 Dose: 10 mg Ciprofloxacin (Cipro) 500 mg PO 0600,[facility] Last Admin: 01/15/17 06:27 Dose: 500 mg Clonidine (Catapres) 0.1 mg PO Q4H PRN PRN Reason: Systolic BP > 180 Emtricitabine/Tenofovir (Truvada) 1 tab PO DAILY [facility] Last Admin: 01/15/17 09:46 Dose: 1 tab Famotidine (Pepcid) 20 mg PO BID [facility] Last Admin: 01/15/17 09:45 Dose: 20 mg Ferrous Sulfate (Feosol) 325 mg PO BID[facility] Last Admin: 01/15/17 09:45 Dose: 325 mg Folic Acid (Folvite) 1 mg PO DAILY [facility] Last Admin: 01/15/17 09:45 Dose: 1 mg Hydralazine HCl (Apresoline) 10 mg SLOW IVP Q4H PRN PRN Reason: Systolic BP > 180 Metronidazole (Flagyl) 500 mg PO TID [facility] Last Admin: 01/15/17 09:45 Dose: 500 mg Morphine Sulfate (Morphine) 4 mg SLOW IVP Q2H PRN PRN Reason: PAIN 6-10 WOUND CARE Last Admin: 01/14/17 13:30 Dose: 4 mg Morphine Sulfate/Sodium Chloride (Morphine 0.9% Nacl Pf 2 Mg/2ml) 2 mg IV Q2H PRN PRN Reason: PAIN 1-5 WOUND CARE Ondansetron HCl (Zofran Odt) 4 mg PO Q6H PRN PRN Reason: Nausea/Vomiting Ondansetron HCl (Zofran) 4 mg IVP Q6H PRN PRN Reason: Nausea/Vomiting Polyethylene Glycol (Miralax) 17 gm PO DAILY [facility] Last Admin: 01/15/17 09:46 Dose: 17 gm Raltegravir (Isentress) 400 mg PO BID [facility] Last Admin: 01/15/17 09:46 Dose: 400 mg Sodium Chloride (Flush - Normal Saline) 10 ml IVF PRN PRN PRN Reason: Saline Flush Last Admin: 01/14/17 09:01 Dose: 10 ml Tamsulosin HCl (Flomax) 0.4 mg PO DAILY [facility] Last Admin: 01/15/17 09:45 Dose: 0.4 mg Tramadol HCl (Ultram) 50 mg PO Q6H PRN PRN Reason: PAIN SCALE 1-5 Tramadol HCl (Ultram) 100 mg PO Q6H PRN PRN Reason: PAIN SCALE 6-10 Last Admin: 01/15/17 09:46 Dose: 100 mg
[2017-01-15 13:15] LABS: %CD4 (Helper/Inducer) 15.7 % (30.8-58.5); Absolute CD4 188 /uL (359-1519); Lymphocytes/Gated Cell Count 1.2 x10E3/uL (0.7-3.1); Total Lymphocyte 16 % (Not Estab.); WBC Total Count 7.6 x10E3/uL (3.4-10.8)
[2017-01-16 11:22] LABS: LOG10 HIV-1 RNA 1.845 (.)
--- NOTE | 2017-01-16 14:42 | OP ---
PROCEDURE: Left below knee amputation. DATE OF PROCEDURE: 01/10/2017 SURGEON: Chris Cesar M.D. PREOPERATIVE DIAGNOSIS: Foot gangrene due to infected pressure sore of left foot, status post ankle guillotine amputation. POSTOPERATIVE DIAGNOSIS: Foot gangrene due to infected pressure sore of left foot, status post ankle guillotine amputation. HISTORY: Mr. Marlow is a 57-year-old man with HIV and severe peripheral neuropathy of uncertain etiology. He developed a pressure ulceration of his left foot and wet gangrene resulting and has undergone a guillotine amputation for this. His infectious symptoms have cleared and he now presents for formal below knee amputation. We did discuss the possibility of above-knee amputation , but he appears to have adequate blood supply to heal the below knee amputation and the patient prefers this. PROCEDURE: After informed consent was obtained and appropriate antibiotics continued, the patient was taken to the operating room. He was placed in supine position and general anesthesia administered. He was prepped and draped in a standard sterile fashion and a fish mouth incision made with a long posterior flap. This was positioned somewhat high on the leg since the patient is nonambulatory. The skin was incised and dissection carried down by the electrocautery to the anterior tibia and the periosteum elevated at that level. A Gigli Saw was passed behind the tibia and the bone transected angling superiorly as the transection proceeded anteriorly to avoid a sharp corner. Dissection was then carried down to the fibula, which was cleared and the periosteum elevated to above the level of the tibial transection. The fibula was then divided using rib selena. The amputation knife was passed behind the tibia and fibula and the posterior flap created. The patent anterior and posterior tibial vessels were tied off. No other significant bleeding was seen , but some small muscular oozing was controlled with electrocautery. The posterior flap was then trimmed to appropriate length and the wound irrigated. Hemostasis was again confirmed. The rough edges of the tibia and fibula were smoothed with a rongeur and rasp. The wound was again irrigated. The muscular fascia were reapproximated over the bone and with [id number] Vicryl sutures. The deep dermis was then reapproximated with additional Vicryl sutures and the skin closed with skin pk. A compression dressing was placed with Xeroform on the incision and the patient was extubated and taken to recovery room in good condition. Estimated blood loss was 150 mL. There were no complications. SPECIMEN: Left lower leg. MTDD
--- NOTE | 2017-01-16 14:42 | OP ---
PROCEDURES: Left foot guillotine amputation and debridement of decubitus ulcers of the sacral and is chial areas. PREOPERATIVE DIAGNOSES: Wet gangrene of the left foot due to decubitus ulcerations and multiple decu bitus ulcerations of the ischial and sacral areas with some nonviable tissue. HISTORY: Mr. Marlow is a 57-year-old man with HIV and severe peripheral neuropathy of unclear zoe ology. He has multiple s ischial and sacral decubitus ulcers, most of which are healing fairly well, but some of which have some nonviable tissue. He has a severe malodorous swollen and infected left foot due to a full thickness pressure ulceration over the lateral foot. Recommendation was made to jakub treviño with guillotine amputation of the foot to control infection with planned formal BKA at a later date with debridement of the decubitus ulcers under the same anesthesia. DESCRIPTION OF PROCEDURE: After informed consent was obtained, the patient was taken to the operatin g room where he was placed in supine position and general anesthesia administered. He was prepped an d draped in standard sterile fashion and the left leg stabilized. A Gigli saw was used to transect t he left foot at the level of the ankle. A few small bleeding vessels were controlled with Bovie elec trocautery and suture ligation. The wound was irrigated and hemostasis verified. There was no absce ss formation at the level of the ankle and only slow oozing from the marrow. A pressure dressing was placed and attention turned to the sacral and ischial decubitus ulcers. The left buttock ulcer had full thickness necrosis centrally. The necrotic skin and subcutaneous tissue were sharply excised do wn to viable appearing subcutaneous tissues and wet to dry dressings placed. There were a few other chronic ulcerations with some superficial nonviable tissue, but none extending to the subcutaneous ti ssue. The nonviable skin was sharply excised and wet to dry dressings placed at these locations also . The patient was then taken to recovery room in good condition. Estimated blood loss was minimal. There were no complications. SPECIMEN: Left foot.
== END 2017-01-15 11:07 | DRG 239 ==
LOC: ERS 12:07 → SJJU 12:59
PROVIDERS: ADMIT Family Medicine; ATTEND Family Medicine
PROC: 0Y6N0Z0 Detachment at Left Foot, Complete, Open Approach (ICD-10-PCS; principal; 2017-01-08)
PROC: 0JB70ZZ Excision of Back Subcutaneous Tissue and Fascia, Open Approach (ICD-10-PCS; 2017-01-08)
PROC: 0JB90ZZ Excision of Buttock Subcutaneous Tissue and Fascia, Open Approach (ICD-10-PCS; 2017-01-08)
PROC: 0Y6J0Z1 Detachment at Left Lower Leg, High, Open Approach (ICD-10-PCS; 2017-01-10)
DX: I96 Gangrene, not elsewhere classified (principal); L89.224 Pressure ulcer of left hip, stage 4; L89.154 Pressure ulcer of sacral region, stage 4; L89.524 Pressure ulcer of left ankle, stage 4; E44.0 Moderate protein-calorie malnutrition; B20 Human immunodeficiency virus [HIV] disease; R64 Cachexia; G82.20 Paraplegia, unspecified; Z68.1 Body mass index [BMI] 19.9 or less, adult; L89.529 Pressure ulcer of left ankle, unspecified stage; D50.9 Iron deficiency anemia, unspecified; G62.9 Polyneuropathy, unspecified; I10 Essential (primary) hypertension; E78.5 Hyperlipidemia, unspecified; N31.9 Neuromuscular dysfunction of bladder, unspecified; B18.2 Chronic viral hepatitis C; Z87.891 Personal history of nicotine dependence; M24.562 Contracture, left knee; M24.561 Contracture, right knee
CPT/HCPCS: 36415; 36416; 36430; 80048; 80053; 80202; 82553; 83605; 84484; 85007; 85025; 85027; 85048; 86361; 86850; 86900; 86901; 87040; 87536; 88307; 96365; J1100; J1956; J2001; J2270; J2405; J2550; J2704; J3010; J3370; J7050; P9016

== ENCOUNTER 2018-01-09 13:04 | Emergency (ER) | payer OTHER ==
[2018-01-09 13:33] LABS: #Eosinphils 0.2 thou/uL (0.0-0.7); #Lymphocytes 1.4 thou/uL (1.20-3.40); #Monocytes 0.6 thou/uL (0.11-0.59); %Basophils 0.1 % (0.0-1.0); %Eosinophils 1.4 % (0.0-10.0); %Lymphocytes 12.9 % (21.0-51.0); %Neutrophils 80.7 % (42.0-75.0); Hemoglobin 11.9 g/dL (14.0-18.0); Mean Corpuscular HGB CONC 32.2 g/dL (32.0-36.0); Mean Corpuscular Hemoglobin 30.6 pg (27.0-31.0); Mean Platelet Volume 6.6 fL (7.4-10.4); Platelet Count 502 thou/uL (130-400); RBC Distribution Width 16.5 % (11.5-14.5); Red Blood Cell (RBC) Count 3.89 mill/uL (4.70-6.10); White Blood Cell (WBC) Count 11.2 thou/uL (4.8-10.8)
[2018-01-09 13:45] LABS: ALT (SGPT) 27 U/L (8-55); AST (SGOT) 40 U/L (5-34); Albumin 2.8 g/dL (3.5-5.0); Alkaline Phosphatase 184 U/L (40-150); Anion Gap 12 mmol/L (10-20); BUN (Urea Nitrogen) 26 mg/dL (8.4-25.7); Bilirubin, Total 0.3 mg/dL (0.2-1.2); Calc. Creatinine Clearance 0 mL/min (70-130); Calcium 9.2 mg/dL (7.8-10.44); Carbon Dioxide 17 mmol/L (22-29); Chloride 115 mmol/L (98-107); Estimated GFR-MDRD Greater than 90; Glucose 110 mg/dL (70-105); Potassium 4.1 mmol/L (3.5-5.1); Protein, Total 6.8 g/dL (6.0-8.3); Sodium 140 mmol/L (136-145)
[2018-01-09 13:46] LABS: Bilirubin Negative (Negative); Blood, Urine Large (Negative); Clarity CLOUDY (Clear); Glucose, Urine (Dipstick) Negative (Negative); Leukocyte Large (Negative); Nitrite Positive (Negative); Protein, Urine (Dipstick) 30 mg/dL (Neg-Trace); Specific Gravity, Urine 1.028 (1.002-1.036); pH, Urine 6.5 (5.0-9.0)
--- NOTE | 2018-01-09 13:46 | RAD ---
CHEST 1 VIEW: Date: 01/09/18 HISTORY: 58-year-old male with history of foul odor from wound in back. Sepsis. COMPARISON: Chest 1 view dated 05/09/16. FINDINGS: There is minimal rotation to the left. There are some overall stable appearing pleural and parenchyma l opacity changes in the left base. The right lung is clear. The left upper lobe is clear. IMPRESSION: Minimal pleural and parenchymal opacity changes in the left base. No confluent pneumonia. POS: [facility]
[2018-01-09 13:48] LABS: Bacteria/HPF 4+ HPF (None Seen); Hyaline Casts/LPF 0-3 HYALINE CAST LPF (0-3 Hyaline); Squamous Epithelial None Seen HPF (0-3)
[2018-01-09 13:49] LABS: Yeast-AUWi Flag 100.1 (0-25.0)
[2018-01-09 14:13] LABS: RBC/HPF 21-50 HPF (0-3); Yeast-All Forms 1+ HPF (None Seen)
[2018-01-09 14:14] LABS: Crystals/HPF 1+ CA OXALATE HPF (Negative)
[2018-01-09 17:52] LABS: Lactic Acid 2.4 mmol/L (0.5-2.2)
== END 2018-01-09 21:47 | disposition short-term general hospital (02) ==
LOC: ERS 13:04
DX: L89.159 Pressure ulcer of sacral region, unspecified stage (principal); G62.9 Polyneuropathy, unspecified; Z21 Asymptomatic human immunodeficiency virus [HIV] infection status; Z87.891 Personal history of nicotine dependence; Z89.612 Acquired absence of left leg above knee; Z79.899 Other long term (current) drug therapy
CPT/HCPCS: 36415; 71045; 80053; 81003; 81015; 83605; 85025; 87040; 87536; 96365; J3370

== ENCOUNTER 2018-07-05 07:08 | Emergency (ER) | payer OTHER ==
[2018-07-05 11:41] LABS: Clarity Turbid (Clear)
[2018-07-05 11:44] LABS: Glucose, Urine (Dipstick) Negative (Negative); Leukocyte Large (Negative); Nitrite Positive (Negative); Protein, Urine (Dipstick) 100 mg/dL (Neg-Trace); pH, Urine 8.2 (5.0-9.0)
[2018-07-05 11:45] LABS: Bilirubin Negative (Negative); Blood, Urine Large (Negative)
[2018-07-05 11:46] LABS: Bacteria/HPF 4+ HPF (None Seen); Hyaline Casts/LPF 0-3 HYALINE CAST LPF (0-3 Hyaline); RBC/HPF GREATER THAN 50-TNTC HPF (0-3); Squamous Epithelial 0-3 HPF (0-3)
[2018-07-05 11:47] LABS: Crystals/HPF 2+ AMORPH PHOS HPF (Negative)
== END 2018-07-05 12:35 | disposition home or self-care (01) ==
LOC: ERS 07:08
DX: T83.091A Other mechanical complication of indwelling urethral catheter, initial encounter (principal); B20 Human immunodeficiency virus [HIV] disease; G62.9 Polyneuropathy, unspecified; Z87.891 Personal history of nicotine dependence; Z79.899 Other long term (current) drug therapy
CPT/HCPCS: 51702; 81003; 81015; 87086

== ENCOUNTER 2018-07-23 08:05 | Emergency (ER) | payer OTHER ==
[2018-07-23 09:03] LABS: Bilirubin Negative (Negative); Blood, Urine Small (Negative); Clarity TURBID (Clear); Glucose, Urine (Dipstick) Negative (Negative); Leukocyte Large (Negative); Nitrite Negative (Negative); Protein, Urine (Dipstick) > or equal to 300 mg/dL (Neg-Trace); Specific Gravity, Urine 1.028 (1.002-1.036); pH, Urine 8.5 (5.0-9.0)
[2018-07-23 09:05] LABS: Bacteria/HPF 3+ HPF (None Seen); RBC/HPF 21-50 HPF (0-3)
[2018-07-23 09:14] LABS: Pathc Cast-AUWi Flag 54.69 (0-2.49)
[2018-07-23 09:17] LABS: ALT (SGPT) 36 U/L (8-55); AST (SGOT) 45 U/L (5-34); Albumin 3.4 g/dL (3.5-5.0); Alkaline Phosphatase 99 U/L (40-150); Anion Gap 15 mmol/L (10-20); BUN (Urea Nitrogen) 21 mg/dL (8.4-25.7); Bilirubin, Total 0.3 mg/dL (0.2-1.2); Calc. Creatinine Clearance 0 mL/min (70-130); Calcium 9.2 mg/dL (7.8-10.44); Carbon Dioxide 21 mmol/L (22-29); Chloride 105 mmol/L (98-107); Estimated GFR-MDRD Greater than 90; Globulin 3.9 g/dL (2.4-3.5); Glucose 157 mg/dL (70-105); Potassium 3.2 mmol/L (3.5-5.1); Protein, Total 7.3 g/dL (6.0-8.3); Sodium 138 mmol/L (136-145)
[2018-07-23 09:18] LABS: #Eosinphils 0.1 thou/uL (0.0-0.7); #Monocytes 0.4 thou/uL (0.11-0.59); #Neutrophils 9.4 thou/uL (1.40-6.50); %Basophils 0.1 % (0.0-1.0); %Eosinophils 1.2 % (0.0-10.0); %Lymphocytes 9.5 % (21.0-51.0); %Monocytes 3.4 % (0.0-10.0); %Neutrophils 85.8 % (42.0-75.0); Hemoglobin 15.1 g/dL (14.0-18.0); Mean Corpuscular HGB CONC 32.4 g/dL (32.0-36.0); Mean Corpuscular Volume 95.7 fL (78.0-98.0); Mean Platelet Volume 7.8 fL (7.4-10.4); Platelet Count 375 thou/uL (130-400); RBC Distribution Width 16.3 % (11.5-14.5); Red Blood Cell (RBC) Count 4.86 mill/uL (4.70-6.10)
[2018-07-23 09:29] LABS: Hyaline Casts/LPF 0-3 HYALINE CAST LPF (0-3 Hyaline); Manual Microscopic Reviewed? No Path Casts Seen; Renal Epithelial 0-3 HPF (0-3); Transitional Epithelial 0-3 HPF (0-3)
--- NOTE | 2018-07-23 10:04 | ULT ---
RIGHT LOWER EXTREMITY VENOUS DUPLEX ULTRASOUND INCLUDING COLOR AND SPECTRAL DOPPLER IMAGING: HISTORY: Lower extremity edema. TECHNIQUE: Exam performed from groin to ankle, including the visualized greater saphenous, the common femoral, t he superficial femoral, the profunda femoral, the popliteal, the trifurcation, and the posterior tibi al vein regions. FINDINGS: Phasic flow noted at all levels with normal compressibility and normal augmentation. No intraluminal thrombus. Right calf superficial subcutaneous edema. IMPRESSION: 1. No evidence for deep venous thrombosis. 2. Right lower extremity subcutaneous edema. POS: C
== END 2018-07-23 12:22 ==
LOC: ERS 08:05
DX: L89.610 Pressure ulcer of right heel, unstageable (principal); N39.0 Urinary tract infection, site not specified; B20 Human immunodeficiency virus [HIV] disease; Z87.891 Personal history of nicotine dependence; Z79.899 Other long term (current) drug therapy; Z79.01 Long term (current) use of anticoagulants
CPT/HCPCS: 36415; 80053; 81003; 81015; 85025; 87086